=== PATIENT | male | born 1950 | race Caucasian/White ===

== ENCOUNTER → 2016-11-21 | Outpatient (RCR) | payer MEDICARE, BC ==
[2016-08-23 08:25] LABS: ADD PATHOLOGY DIFF REVIEW NO
[2016-08-23 08:28] LABS: MEAN CELL VOLUME 83 fl (80.0-100.0); MEAN CORPUSCULAR HGB CONC 34 g/dl (33.0-37.0); MEAN PLATELET VOLUME 10.7 fl (7.4-10.4); RED BLOOD COUNT 2.17 M/mm3 (4.20-5.60); REDCELL DISTRIBUTION WIDTH-CV 12.8 % (11.5-14.5); WHITE BLOOD COUNT 2.4 K/mm3 (4.8-10.8)
[2016-08-23 08:31] LABS: HEMOGLOBIN 6.2 g/dl (13.5-18.0); MEAN CORPUSCULAR HEMOGLOBIN 29 pg (27.0-31.0); PLATELET COUNT 57 K/mm3 (130-400)
[2016-08-23 08:34] VITALS: BP 143/63; PULSE 51; TEMP 98.1
[2016-08-23 08:39] LABS: ADJUSTED CALCIUM 10.3 mg/dL (8.4-10.2); ALBUMIN 3.5 gm/dL (3.5-5.0); BILIRUBIN,TOTAL 0.5 mg/dL (0.0-1.0); CALCIUM 9.9 mg/dL (8.4-10.2); CREATININE, serum 1.45 mg/dL (0.66-1.25); POTASSIUM 4.4 mmol/L (3.4-5.0); TOTAL PROTEIN 6.3 gm/dL (6.4-8.2)
[2016-08-23 09:22] LABS: BAND 2 % (0-10); EOSINOPHIL 1 % (0-4); NEUTROPHILS 81 % (42.0-75.2); PLATELET ESTIMATE DECREASED (NORMAL); TOTAL CELLS COUNTED 100
[2016-08-23 09:25] LABS: HYPOCHROMIA 2+; MICROCYTOSIS 2+
[2016-08-24 14:19] VITALS: BP 158/58; PULSE 54; TEMP 98
[2016-08-24 14:35] VITALS: BP 149/77; PULSE 51; TEMP 98.3
[2016-08-24 14:50] VITALS: BP 177/67; PULSE 55; TEMP 98.3
[2016-08-24 15:20] VITALS: BP 171/76; PULSE 48; TEMP 98.3
[2016-08-24 16:19] VITALS: BP 182/69; PULSE 48; TEMP 97.1
[2016-08-27 10:08] VITALS: BP 119/67; PULSE 72; TEMP 98.1
[2016-08-27 10:42] LABS: ADD PATHOLOGY DIFF REVIEW NO
[2016-08-27 10:46] LABS: MEAN CELL VOLUME 84 fl (80.0-100.0); MEAN CORPUSCULAR HGB CONC 34 g/dl (33.0-37.0); MEAN PLATELET VOLUME 10.7 fl (7.4-10.4); RED BLOOD COUNT 2.17 M/mm3 (4.20-5.60); REDCELL DISTRIBUTION WIDTH-CV 12.8 % (11.5-14.5)
[2016-08-27 10:53] LABS: HEMATOCRIT 18.3 % (42.0-52.0); HEMOGLOBIN 6.3 g/dl (13.5-18.0); MEAN CORPUSCULAR HEMOGLOBIN 29 pg (27.0-31.0); PLATELET COUNT 66 K/mm3 (130-400); WHITE BLOOD COUNT 1.5 K/mm3 (4.8-10.8)
[2016-08-27 11:01] LABS: ADJUSTED CALCIUM 10.3 mg/dL (8.4-10.2); ALBUMIN 3.5 gm/dL (3.5-5.0); BILIRUBIN,TOTAL 0.5 mg/dL (0.0-1.0); CALCIUM 9.9 mg/dL (8.4-10.2); CREATININE, serum 1.48 mg/dL (0.66-1.25); POTASSIUM 4.4 mmol/L (3.4-5.0); TOTAL PROTEIN 6.3 gm/dL (6.4-8.2)
[2016-08-27 11:07] LABS: BAND 9 % (0-10); METAMYELOCYTE 1 % (0-0); NEUTROPHILS 77 % (42.0-75.2); PLATELET ESTIMATE DECREASED (NORMAL); TOTAL CELLS COUNTED 100
[2016-08-30 08:21] VITALS: BP 148/75; PULSE 62; TEMP 97.7
[2016-08-30 08:37] LABS: ADD PATHOLOGY DIFF REVIEW NO
[2016-08-30 08:50] LABS: ADJUSTED CALCIUM 10.4 mg/dL (8.4-10.2); ALBUMIN 3.5 gm/dL (3.5-5.0); BILIRUBIN,TOTAL 0.5 mg/dL (0.0-1.0); CREATININE, serum 1.41 mg/dL (0.66-1.25); MEAN CELL VOLUME 85 fl (80.0-100.0); MEAN CORPUSCULAR HGB CONC 34 g/dl (33.0-37.0); MEAN PLATELET VOLUME 10.6 fl (7.4-10.4); POTASSIUM 4.2 mmol/L (3.4-5.0); RED BLOOD COUNT 2.51 M/mm3 (4.20-5.60); REDCELL DISTRIBUTION WIDTH-CV 13.2 % (11.5-14.5); TOTAL PROTEIN 6.4 gm/dL (6.4-8.2)
[2016-08-30 08:52] LABS: HEMOGLOBIN 7.3 g/dl (13.5-18.0); MEAN CORPUSCULAR HEMOGLOBIN 29 pg (27.0-31.0)
[2016-08-30 08:53] LABS: HEMATOCRIT 21.2 % (42.0-52.0); PLATELET COUNT 72 K/mm3 (130-400)
[2016-08-30 09:22] LABS: BAND 3 % (0-10); EOSINOPHIL 1 % (0-4); METAMYELOCYTE 2 % (0-0); MYELOCYTE 1 % (0-0); NEUTROPHILS 83 % (42.0-75.2); TOTAL CELLS COUNTED 100
[2016-08-30 09:24] LABS: ANISOCYTOSIS 1+; HYPOCHROMIA 2+; MICROCYTOSIS 1+; PLATELET ESTIMATE DECREASED (NORMAL); ROULEAUX 1+
[2016-09-06 08:10] VITALS: BP 132/72; PULSE 60; TEMP 97.9
[2016-09-06 08:27] LABS: ADD PATHOLOGY DIFF REVIEW NO
[2016-09-06 08:35] LABS: MEAN CELL VOLUME 86 fl (80.0-100.0); MEAN CORPUSCULAR HGB CONC 34 g/dl (33.0-37.0); MEAN PLATELET VOLUME 10.4 fl (7.4-10.4); RED BLOOD COUNT 2.47 M/mm3 (4.20-5.60); REDCELL DISTRIBUTION WIDTH-CV 13.2 % (11.5-14.5); WHITE BLOOD COUNT 3.6 K/mm3 (4.8-10.8)
[2016-09-06 08:39] LABS: HEMATOCRIT 21.2 % (42.0-52.0); HEMOGLOBIN 7.2 g/dl (13.5-18.0); MEAN CORPUSCULAR HEMOGLOBIN 29 pg (27.0-31.0); PLATELET COUNT 74 K/mm3 (130-400)
[2016-09-06 08:42] LABS: ADJUSTED CALCIUM 10.4 mg/dL (8.4-10.2); ALBUMIN 3.4 gm/dL (3.5-5.0); BILIRUBIN,TOTAL 0.6 mg/dL (0.0-1.0); CALCIUM 9.9 mg/dL (8.4-10.2); CREATININE, serum 1.42 mg/dL (0.66-1.25); POTASSIUM 4.1 mmol/L (3.4-5.0); TOTAL PROTEIN 6.4 gm/dL (6.4-8.2)
[2016-09-06 08:46] LABS: BAND 3 % (0-10); NEUTROPHILS 90 % (42.0-75.2); PLATELET ESTIMATE DECREASED (NORMAL); TOTAL CELLS COUNTED 100
[2016-09-07 15:20] VITALS: BP 132/74; PULSE 68; TEMP 98.3
[2016-09-07 15:45] VITALS: BP 142/76; PULSE 57; TEMP 98
[2016-09-07 16:00] VITALS: BP 144/81; PULSE 54; TEMP 98.1
[2016-09-07 16:30] VITALS: BP 161/80; PULSE 52; TEMP 98.2
[2016-09-07 17:10] VITALS: BP 155/82; PULSE 59; TEMP 97.9
[2016-09-13 07:17] VITALS: BP 139/84; PULSE 65; TEMP 97.4
[2016-09-13 07:33] LABS: ADD PATHOLOGY DIFF REVIEW NO
[2016-09-13 07:36] LABS: MEAN CELL VOLUME 82 fl (80.0-100.0); MEAN CORPUSCULAR HGB CONC 34 g/dl (33.0-37.0); MEAN PLATELET VOLUME 10.2 fl (7.4-10.4); RED BLOOD COUNT 2.67 M/mm3 (4.20-5.60); REDCELL DISTRIBUTION WIDTH-CV 15.5 % (11.5-14.5); WHITE BLOOD COUNT 3.1 K/mm3 (4.8-10.8)
[2016-09-13 07:56] LABS: HEMOGLOBIN 7.5 g/dl (13.5-18.0); MEAN CORPUSCULAR HEMOGLOBIN 28 pg (27.0-31.0); PLATELET COUNT 61 K/mm3 (130-400)
[2016-09-13 08:14] LABS: ADJUSTED CALCIUM 10.3 mg/dL (8.4-10.2); ALBUMIN 3.3 gm/dL (3.5-5.0); BILIRUBIN,TOTAL 0.5 mg/dL (0.0-1.0); CALCIUM 9.7 mg/dL (8.4-10.2); CREATININE, serum 1.29 mg/dL (0.66-1.25); POTASSIUM 4.2 mmol/L (3.4-5.0); TOTAL PROTEIN 6.2 gm/dL (6.4-8.2)
[2016-09-13 12:10] LABS: BAND 8 % (0-10); NEUTROPHILS 78 % (42.0-75.2); TOTAL CELLS COUNTED 100
[2016-09-13 12:11] LABS: PLATELET ESTIMATE DECREASED (NORMAL)
[2016-09-17 08:03] VITALS: BP 134/77; PULSE 66; TEMP 98.8
[2016-09-17 08:31] LABS: ADJUSTED CALCIUM 10.4 mg/dL (8.4-10.2); ALBUMIN 3.4 gm/dL (3.5-5.0); BILIRUBIN,TOTAL 0.6 mg/dL (0.0-1.0); CALCIUM 9.9 mg/dL (8.4-10.2); CREATININE, serum 1.53 mg/dL (0.66-1.25); POTASSIUM 4.5 mmol/L (3.4-5.0); TOTAL PROTEIN 6.1 gm/dL (6.4-8.2)
[2016-09-17 08:31] LABS: ADD PATHOLOGY DIFF REVIEW NO
[2016-09-17 08:42] LABS: MEAN CELL VOLUME 84 fl (80.0-100.0); MEAN CORPUSCULAR HGB CONC 33 g/dl (33.0-37.0); MEAN PLATELET VOLUME 10.3 fl (7.4-10.4); RED BLOOD COUNT 2.47 M/mm3 (4.20-5.60); REDCELL DISTRIBUTION WIDTH-CV 14.4 % (11.5-14.5)
[2016-09-17 08:44] LABS: HEMATOCRIT 20.8 % (42.0-52.0); HEMOGLOBIN 6.8 g/dl (13.5-18.0); MEAN CORPUSCULAR HEMOGLOBIN 28 pg (27.0-31.0); PLATELET COUNT 54 K/mm3 (130-400); WHITE BLOOD COUNT 1.8 K/mm3 (4.8-10.8)
[2016-09-17 09:33] LABS: EOSINOPHIL 1 % (0-4); MYELOCYTE 1 % (0-0); NEUTROPHILS 84 % (42.0-75.2); TOTAL CELLS COUNTED 100
[2016-09-17 09:34] LABS: PLATELET ESTIMATE DECREASED (NORMAL)
[2016-09-17 16:36] VITALS: BP 127/73; PULSE 68; TEMP 98.2
[2016-09-17 16:41] VITALS: BP 125/68; PULSE 62; TEMP 98.3
[2016-09-17 16:56] VITALS: BP 110/75; PULSE 60; TEMP 98.2
[2016-09-17 17:26] VITALS: BP 145/74; PULSE 60; TEMP 98.1
[2016-09-17 18:26] VITALS: BP 145/75; PULSE 60; TEMP 98.2
[2016-09-20 07:54] VITALS: BP 140/53; PULSE 64; TEMP 97.9
[2016-09-20 08:06] LABS: ADD PATHOLOGY DIFF REVIEW NO
[2016-09-20 08:17] LABS: MEAN CELL VOLUME 83 fl (80.0-100.0); MEAN CORPUSCULAR HGB CONC 33 g/dl (33.0-37.0); MEAN PLATELET VOLUME 10.3 fl (7.4-10.4); RED BLOOD COUNT 2.57 M/mm3 (4.20-5.60); REDCELL DISTRIBUTION WIDTH-CV 14.5 % (11.5-14.5)
[2016-09-20 08:24] LABS: ADJUSTED CALCIUM 10.4 mg/dL (8.4-10.2); ALBUMIN 3.2 gm/dL (3.5-5.0); BILIRUBIN,TOTAL 0.6 mg/dL (0.0-1.0); CALCIUM 9.8 mg/dL (8.4-10.2); CREATININE, serum 1.33 mg/dL (0.66-1.25); POTASSIUM 4.4 mmol/L (3.4-5.0); TOTAL PROTEIN 6.3 gm/dL (6.4-8.2)
[2016-09-20 08:33] LABS: HEMATOCRIT 21.3 % (42.0-52.0); MEAN CORPUSCULAR HEMOGLOBIN 27 pg (27.0-31.0); PLATELET COUNT 54 K/mm3 (130-400); WHITE BLOOD COUNT 1.3 K/mm3 (4.8-10.8)
[2016-09-20 08:45] LABS: BAND 9 % (0-10); METAMYELOCYTE 1 % (0-0); NEUTROPHILS 80 % (42.0-75.2); PLATELET ESTIMATE DECREASED (NORMAL); TOTAL CELLS COUNTED 100
[2016-09-21 13:13] VITALS: BP 146/75; PULSE 75; TEMP 98.1
[2016-09-21 13:28] VITALS: BP 133/72; PULSE 70; TEMP 98.2
[2016-09-21 13:43] VITALS: BP 138/76; PULSE 75; TEMP 98.6
[2016-09-21 14:35] VITALS: BP 145/78; PULSE 75; TEMP 98
[2016-09-24 08:18] VITALS: BP 153/76; PULSE 70; TEMP 97.3
[2016-09-24 08:30] LABS: ADD PATHOLOGY DIFF REVIEW NO
[2016-09-24 08:36] LABS: MEAN CELL VOLUME 83 fl (80.0-100.0); MEAN CORPUSCULAR HGB CONC 34 g/dl (33.0-37.0); MEAN PLATELET VOLUME 9.9 fl (7.4-10.4); REDCELL DISTRIBUTION WIDTH-CV 14.2 % (11.5-14.5)
[2016-09-24 08:39] LABS: HEMATOCRIT 21.5 % (42.0-52.0); MEAN CORPUSCULAR HEMOGLOBIN 28 pg (27.0-31.0)
[2016-09-24 08:41] LABS: HEMOGLOBIN 7.2 g/dl (13.5-18.0); PLATELET COUNT 46 K/mm3 (130-400); WHITE BLOOD COUNT 1.1 K/mm3 (4.8-10.8)
[2016-09-24 08:49] LABS: ALBUMIN 3.2 gm/dL (3.5-5.0); BILIRUBIN,TOTAL 0.6 mg/dL (0.0-1.0); CALCIUM 9.4 mg/dL (8.4-10.2); CREATININE, serum 1.45 mg/dL (0.66-1.25); POTASSIUM 4.5 mmol/L (3.4-5.0); TOTAL PROTEIN 6.2 gm/dL (6.4-8.2)
[2016-09-24 09:07] LABS: EOSINOPHIL 4 % (0-4); NEUTROPHILS 70 % (42.0-75.2)
[2016-09-24 09:08] LABS: PLATELET ESTIMATE DECREASED (NORMAL); TOTAL CELLS COUNTED 50
[2016-09-27 07:44] LABS: ADD PATHOLOGY DIFF REVIEW NO
[2016-09-27 07:48] VITALS: BP 136/69; PULSE 72; TEMP 97.8
[2016-09-27 07:59] LABS: MEAN CELL VOLUME 83 fl (80.0-100.0); MEAN CORPUSCULAR HGB CONC 33 g/dl (33.0-37.0); MEAN PLATELET VOLUME 10.5 fl (7.4-10.4); RED BLOOD COUNT 2.47 M/mm3 (4.20-5.60)
[2016-09-27 08:03] LABS: ADJUSTED CALCIUM 10.1 mg/dL (8.4-10.2); ALBUMIN 3.4 gm/dL (3.5-5.0); BILIRUBIN,TOTAL 0.8 mg/dL (0.0-1.0); CALCIUM 9.6 mg/dL (8.4-10.2); CREATININE, serum 1.37 mg/dL (0.66-1.25); POTASSIUM 4.6 mmol/L (3.4-5.0); TOTAL PROTEIN 6.5 gm/dL (6.4-8.2)
[2016-09-27 08:10] LABS: HEMATOCRIT 20.4 % (42.0-52.0); HEMOGLOBIN 6.8 g/dl (13.5-18.0); MEAN CORPUSCULAR HEMOGLOBIN 28 pg (27.0-31.0); WHITE BLOOD COUNT 1.3 K/mm3 (4.8-10.8)
[2016-09-27 08:11] LABS: PLATELET COUNT 46 K/mm3 (130-400)
[2016-09-27 08:26] LABS: METAMYELOCYTE 5 % (0-0); NEUTROPHILS 60 % (42.0-75.2); TOTAL CELLS COUNTED 100
[2016-09-27 08:28] LABS: HYPOCHROMIA 2+; MICROCYTOSIS 1+
[2016-09-27 13:25] VITALS: BP 129/67; PULSE 68; TEMP 97.5
[2016-09-27 13:45] VITALS: BP 113/68; PULSE 68; TEMP 97.1
[2016-09-27 14:01] VITALS: BP 127/67; PULSE 62; TEMP 97.2
[2016-09-27 14:29] VITALS: BP 135/71; PULSE 62; TEMP 97.2
[2016-09-27 15:10] VITALS: BP 132/74; PULSE 61; TEMP 97.9
[2016-10-03 13:53] VITALS: BP 130/61; PULSE 58; TEMP 97.6
[2016-10-03 14:08] VITALS: BP 142/72; PULSE 62; TEMP 97.6
[2016-10-03 14:25] VITALS: BP 172/78; PULSE 62; TEMP 97.6
[2016-10-03 14:50] VITALS: BP 166/78; PULSE 55; TEMP 97
[2016-10-03 15:35] VITALS: BP 165/80; PULSE 54; TEMP 97.8
[2016-10-03 17:03] VITALS: BP 101/78; PULSE 102; TEMP 98.7
[2016-10-05 08:33] LABS: ADD PATHOLOGY DIFF REVIEW NO
[2016-10-05 08:37] LABS: MEAN CELL VOLUME 82 fl (80.0-100.0); MEAN CORPUSCULAR HGB CONC 34 g/dl (33.0-37.0); REDCELL DISTRIBUTION WIDTH-CV 14.2 % (11.5-14.5); WHITE BLOOD COUNT 2.2 K/mm3 (4.8-10.8)
[2016-10-05 08:39] VITALS: BP 143/65; PULSE 64; TEMP 98.2
[2016-10-05 08:42] LABS: HEMATOCRIT 20.5 % (42.0-52.0); HEMOGLOBIN 6.9 g/dl (13.5-18.0); MEAN CORPUSCULAR HEMOGLOBIN 28 pg (27.0-31.0); PLATELET COUNT 51 K/mm3 (130-400)
[2016-10-05 08:45] LABS: ADJUSTED CALCIUM 10.5 mg/dL (8.4-10.2); ALBUMIN 3.3 gm/dL (3.5-5.0); BILIRUBIN,TOTAL 0.6 mg/dL (0.0-1.0); CALCIUM 9.9 mg/dL (8.4-10.2); CREATININE, serum 1.43 mg/dL (0.66-1.25); POTASSIUM 4.6 mmol/L (3.4-5.0)
[2016-10-05 08:47] LABS: NEUTROPHILS 28 % (42.0-75.2); TOTAL CELLS COUNTED 100
[2016-10-05 08:48] LABS: HYPOCHROMIA 2+; MICROCYTOSIS 1+
[2016-10-05 13:24] VITALS: BP 154/78; PULSE 62; TEMP 98.5
[2016-10-05 13:38] VITALS: BP 139/78; PULSE 64; TEMP 98.1
[2016-10-05 13:54] VITALS: BP 141/75; PULSE 60; TEMP 98.4
[2016-10-05 14:24] VITALS: BP 154/78; PULSE 60; TEMP 97.8
[2016-10-05 15:20] VITALS: BP 184/80; PULSE 65; TEMP 98
[2016-10-08 08:20] VITALS: BP 151/73; PULSE 65; TEMP 98.2
[2016-10-08 08:42] LABS: ADD PATHOLOGY DIFF REVIEW NO
[2016-10-08 08:47] LABS: MEAN CELL VOLUME 83 fl (80.0-100.0); MEAN CORPUSCULAR HGB CONC 33 g/dl (33.0-37.0); MEAN PLATELET VOLUME 10.5 fl (7.4-10.4); RED BLOOD COUNT 2.57 M/mm3 (4.20-5.60); REDCELL DISTRIBUTION WIDTH-CV 13.9 % (11.5-14.5)
[2016-10-08 08:50] LABS: HEMATOCRIT 21.2 % (42.0-52.0); MEAN CORPUSCULAR HEMOGLOBIN 27 pg (27.0-31.0); PLATELET COUNT 43 K/mm3 (130-400); WHITE BLOOD COUNT 1.1 K/mm3 (4.8-10.8)
[2016-10-08 09:03] LABS: ADJUSTED CALCIUM 10.5 mg/dL (8.4-10.2); BILIRUBIN,TOTAL 0.6 mg/dL (0.0-1.0); CALCIUM 9.7 mg/dL (8.4-10.2); CREATININE, serum 1.23 mg/dL (0.66-1.25); POTASSIUM 4.5 mmol/L (3.4-5.0); TOTAL PROTEIN 5.6 gm/dL (6.4-8.2)
[2016-10-08 09:25] LABS: BAND 4 % (0-10); EOSINOPHIL 4 % (0-4); HYPOCHROMIA 2+; NEUTROPHILS 52 % (42.0-75.2); PLATELET ESTIMATE DECREASED (NORMAL); TOTAL CELLS COUNTED 100
[2016-10-08 09:26] LABS: MICROCYTOSIS 1+
[2016-10-08 10:33] VITALS: BP 143/70; PULSE 59; TEMP 98.1
[2016-10-08 10:47] VITALS: BP 154/64; PULSE 59; TEMP 98.1
[2016-10-08 11:02] VITALS: BP 152/68; PULSE 50; TEMP 97.8
[2016-10-08 11:30] VITALS: BP 152/68; PULSE 49; TEMP 97.1
[2016-10-08 12:09] VITALS: BP 149/74; PULSE 49; TEMP 97.5
[2016-10-11 08:11] LABS: ADD PATHOLOGY DIFF REVIEW NO
[2016-10-11 08:20] VITALS: BP 137/68; PULSE 59; TEMP 98.3
[2016-10-11 08:33] LABS: MEAN CELL VOLUME 83 fl (80.0-100.0); MEAN CORPUSCULAR HGB CONC 34 g/dl (33.0-37.0); MEAN PLATELET VOLUME 10.8 fl (7.4-10.4); RED BLOOD COUNT 2.72 M/mm3 (4.20-5.60); REDCELL DISTRIBUTION WIDTH-CV 13.9 % (11.5-14.5)
[2016-10-11 08:37] LABS: ADJUSTED CALCIUM 10.3 mg/dL (8.4-10.2); ALBUMIN 3.2 gm/dL (3.5-5.0); BILIRUBIN,TOTAL 0.8 mg/dL (0.0-1.0); CALCIUM 9.7 mg/dL (8.4-10.2); CREATININE, serum 1.46 mg/dL (0.66-1.25); POTASSIUM 4.4 mmol/L (3.4-5.0)
[2016-10-11 08:56] LABS: HEMATOCRIT 22.6 % (42.0-52.0); HEMOGLOBIN 7.6 g/dl (13.5-18.0); MEAN CORPUSCULAR HEMOGLOBIN 28 pg (27.0-31.0); PLATELET COUNT 49 K/mm3 (130-400); WHITE BLOOD COUNT 1.5 K/mm3 (4.8-10.8)
[2016-10-11 10:53] LABS: BAND 10 % (0-10); EOSINOPHIL 2 % (0-4); METAMYELOCYTE 4 % (0-0); NEUTROPHILS 48 % (42.0-75.2); PLATELET ESTIMATE DECREASED (NORMAL)
[2016-10-11 11:01] LABS: TOTAL CELLS COUNTED 50
[2016-10-15 08:14] VITALS: BP 152/59; PULSE 60; TEMP 97.7
[2016-10-15 08:29] LABS: ADD PATHOLOGY DIFF REVIEW NO
[2016-10-15 08:41] LABS: MEAN CELL VOLUME 84 fl (80.0-100.0); MEAN CORPUSCULAR HGB CONC 33 g/dl (33.0-37.0); MEAN PLATELET VOLUME 11.3 fl (7.4-10.4); RED BLOOD COUNT 2.38 M/mm3 (4.20-5.60)
[2016-10-15 08:49] LABS: HEMATOCRIT 19.9 % (42.0-52.0); HEMOGLOBIN 6.5 g/dl (13.5-18.0); MEAN CORPUSCULAR HEMOGLOBIN 27 pg (27.0-31.0); PLATELET COUNT 51 K/mm3 (130-400); WHITE BLOOD COUNT 1.4 K/mm3 (4.8-10.8)
[2016-10-15 08:56] LABS: ADJUSTED CALCIUM 10.2 mg/dL (8.4-10.2); ALBUMIN 3.2 gm/dL (3.5-5.0); BILIRUBIN,TOTAL 0.6 mg/dL (0.0-1.0); CALCIUM 9.6 mg/dL (8.4-10.2); CREATININE, serum 1.3 mg/dL (0.66-1.25); POTASSIUM 4.4 mmol/L (3.4-5.0); TOTAL PROTEIN 5.6 gm/dL (6.4-8.2)
[2016-10-15 10:42] LABS: BAND 6 % (0-10); EOSINOPHIL 2 % (0-4); METAMYELOCYTE 2 % (0-0); MYELOCYTE 2 % (0-0); NEUTROPHILS 64 % (42.0-75.2); PLATELET ESTIMATE DECREASED (NORMAL); TOTAL CELLS COUNTED 50
[2016-10-15 11:10] VITALS: BP 140/54; PULSE 59; TEMP 98.1
[2016-10-15 11:33] VITALS: BP 134/63; PULSE 58; TEMP 98.1
[2016-10-15 11:48] VITALS: BP 144/69; PULSE 55; TEMP 98
[2016-10-15 12:18] VITALS: BP 148/73; PULSE 53; TEMP 98.1
[2016-10-15 13:11] VITALS: BP 149/74; PULSE 56; TEMP 98.2
[2016-10-18 08:22] VITALS: BP 129/57; PULSE 68; TEMP 98
[2016-10-18 08:47] LABS: ADD PATHOLOGY DIFF REVIEW NO
[2016-10-18 08:54] LABS: MEAN CELL VOLUME 83 fl (80.0-100.0); MEAN CORPUSCULAR HGB CONC 34 g/dl (33.0-37.0); RED BLOOD COUNT 2.51 M/mm3 (4.20-5.60); REDCELL DISTRIBUTION WIDTH-CV 13.8 % (11.5-14.5)
[2016-10-18 09:02] LABS: ADJUSTED CALCIUM 10.4 mg/dL (8.4-10.2); ALBUMIN 3.2 gm/dL (3.5-5.0); BILIRUBIN,TOTAL 0.8 mg/dL (0.0-1.0); CALCIUM 9.8 mg/dL (8.4-10.2); CREATININE, serum 1.38 mg/dL (0.66-1.25); POTASSIUM 4.4 mmol/L (3.4-5.0); TOTAL PROTEIN 5.9 gm/dL (6.4-8.2)
[2016-10-18 09:05] LABS: HEMATOCRIT 20.7 % (42.0-52.0); MEAN CORPUSCULAR HEMOGLOBIN 28 pg (27.0-31.0); PLATELET COUNT 45 K/mm3 (130-400)
[2016-10-18 09:43] LABS: BAND 12 % (0-10); NEUTROPHILS 57 % (42.0-75.2); PLATELET ESTIMATE DECREASED (NORMAL)
[2016-10-18 09:44] LABS: TOTAL CELLS COUNTED 50
[2016-10-18 12:15] VITALS: BP 145/56; PULSE 66; TEMP 98.2
[2016-10-18 12:35] VITALS: BP 128/73; PULSE 57; TEMP 98.3
[2016-10-18 12:50] VITALS: BP 134/62; PULSE 56; TEMP 98.2
[2016-10-18 13:20] VITALS: BP 126/70; PULSE 55; TEMP 98.2
[2016-10-18 14:20] VITALS: BP 149/65; PULSE 58; TEMP 98.2
[2016-10-22 08:22] VITALS: BP 122/61; PULSE 59; TEMP 98
[2016-10-22 08:27] LABS: ADD PATHOLOGY DIFF REVIEW NO
[2016-10-22 08:36] LABS: MEAN CELL VOLUME 85 fl (80.0-100.0); MEAN CORPUSCULAR HGB CONC 33 g/dl (33.0-37.0); MEAN PLATELET VOLUME 11.5 fl (7.4-10.4); RED BLOOD COUNT 2.54 M/mm3 (4.20-5.60); REDCELL DISTRIBUTION WIDTH-CV 14.2 % (11.5-14.5)
[2016-10-22 08:38] LABS: HEMATOCRIT 21.6 % (42.0-52.0); HEMOGLOBIN 7.2 g/dl (13.5-18.0); MEAN CORPUSCULAR HEMOGLOBIN 28 pg (27.0-31.0); PLATELET COUNT 43 K/mm3 (130-400)
[2016-10-22 08:46] LABS: ADJUSTED CALCIUM 10.3 mg/dL (8.4-10.2); ALBUMIN 3.2 gm/dL (3.5-5.0); BILIRUBIN,TOTAL 0.7 mg/dL (0.0-1.0); CALCIUM 9.7 mg/dL (8.4-10.2); CREATININE, serum 1.29 mg/dL (0.66-1.25); POTASSIUM 4.1 mmol/L (3.4-5.0); TOTAL PROTEIN 5.8 gm/dL (6.4-8.2)
[2016-10-22 09:29] LABS: BAND 2 % (0-10); EOSINOPHIL 4 % (0-4); NEUTROPHILS 56 % (42.0-75.2)
[2016-10-22 09:30] LABS: PLATELET ESTIMATE DECREASED (NORMAL)
[2016-10-22 09:33] LABS: TOTAL CELLS COUNTED 50
[2016-10-25 08:25] LABS: ADD PATHOLOGY DIFF REVIEW NO
[2016-10-25 08:32] LABS: MEAN CELL VOLUME 84 fl (80.0-100.0); MEAN CORPUSCULAR HGB CONC 33 g/dl (33.0-37.0); MEAN PLATELET VOLUME 10.8 fl (7.4-10.4); RED BLOOD COUNT 2.29 M/mm3 (4.20-5.60); REDCELL DISTRIBUTION WIDTH-CV 13.9 % (11.5-14.5)
[2016-10-25 08:33] LABS: HEMATOCRIT 19.2 % (42.0-52.0); MEAN CORPUSCULAR HEMOGLOBIN 28 pg (27.0-31.0)
[2016-10-25 08:34] LABS: HEMOGLOBIN 6.4 g/dl (13.5-18.0); PLATELET COUNT 36 K/mm3 (130-400); WHITE BLOOD COUNT 0.8 K/mm3 (4.8-10.8)
[2016-10-25 08:53] LABS: ADJUSTED CALCIUM 10.5 mg/dL (8.4-10.2); BILIRUBIN,TOTAL 0.8 mg/dL (0.0-1.0); CALCIUM 9.7 mg/dL (8.4-10.2); CREATININE, serum 1.36 mg/dL (0.66-1.25); POTASSIUM 4.5 mmol/L (3.4-5.0); TOTAL PROTEIN 5.8 gm/dL (6.4-8.2)
[2016-10-25 08:54] VITALS: BP 125/62; PULSE 66; TEMP 98
[2016-10-25 09:51] VITALS: BP 120/60; PULSE 58; TEMP 98.3
[2016-10-25 10:10] VITALS: BP 119/58; PULSE 54; TEMP 98.4
[2016-10-25 10:15] LABS: BAND 6 % (0-10); NEUTROPHILS 52 % (42.0-75.2)
[2016-10-25 10:16] LABS: PLATELET ESTIMATE DECREASED (NORMAL); TOTAL CELLS COUNTED 50
[2016-10-25 10:25] VITALS: BP 130/57; PULSE 57; TEMP 98
[2016-10-25 10:55] VITALS: BP 136/61; PULSE 56; TEMP 98.2
[2016-10-25 11:50] VITALS: BP 148/58; PULSE 50; TEMP 98
[2016-10-29 08:15] LABS: ADD PATHOLOGY DIFF REVIEW NO
[2016-10-29 08:23] VITALS: BP 126/67; PULSE 73; TEMP 98.4
[2016-10-29 08:33] LABS: MEAN CELL VOLUME 84 fl (80.0-100.0); MEAN CORPUSCULAR HGB CONC 34 g/dl (33.0-37.0); MEAN PLATELET VOLUME 10.9 fl (7.4-10.4); RED BLOOD COUNT 2.61 M/mm3 (4.20-5.60)
[2016-10-29 08:34] LABS: HEMATOCRIT 21.9 % (42.0-52.0); HEMOGLOBIN 7.4 g/dl (13.5-18.0); MEAN CORPUSCULAR HEMOGLOBIN 28 pg (27.0-31.0); PLATELET COUNT 35 K/mm3 (130-400); WHITE BLOOD COUNT 1.1 K/mm3 (4.8-10.8)
[2016-10-29 08:35] LABS: ADJUSTED CALCIUM 10.7 mg/dL (8.4-10.2); ALBUMIN 3.4 gm/dL (3.5-5.0); BILIRUBIN,TOTAL 0.7 mg/dL (0.0-1.0); CALCIUM 10.2 mg/dL (8.4-10.2); CREATININE, serum 1.4 mg/dL (0.66-1.25); POTASSIUM 4.4 mmol/L (3.4-5.0); TOTAL PROTEIN 6.1 gm/dL (6.4-8.2)
[2016-10-29 08:48] LABS: BAND 10 % (0-10); BASOPHIL 2 % (0-2); EOSINOPHIL 2 % (0-4); NEUTROPHILS 54 % (42.0-75.2); PLATELET ESTIMATE DECREASED (NORMAL); TOTAL CELLS COUNTED 50
[2016-11-02 08:04] VITALS: BP 123/68; PULSE 66; TEMP 98.4
[2016-11-02 08:04] LABS: ADD PATHOLOGY DIFF REVIEW NO
[2016-11-02 08:08] LABS: MEAN CELL VOLUME 83 fl (80.0-100.0); MEAN CORPUSCULAR HGB CONC 34 g/dl (33.0-37.0); MEAN PLATELET VOLUME 10.7 fl (7.4-10.4); RED BLOOD COUNT 2.58 M/mm3 (4.20-5.60)
[2016-11-02 08:20] LABS: ADJUSTED CALCIUM 10.6 mg/dL (8.4-10.2); ALBUMIN 3.4 gm/dL (3.5-5.0); BILIRUBIN,TOTAL 0.8 mg/dL (0.0-1.0); CALCIUM 10.1 mg/dL (8.4-10.2); CREATININE, serum 1.42 mg/dL (0.66-1.25); POTASSIUM 4.4 mmol/L (3.4-5.0); TOTAL PROTEIN 6.1 gm/dL (6.4-8.2)
[2016-11-02 09:00] LABS: BAND 10 % (0-10); EOSINOPHIL 4 % (0-4); NEUTROPHILS 62 % (42.0-75.2); PLATELET ESTIMATE DECREASED (NORMAL); TOTAL CELLS COUNTED 50
[2016-11-02 09:01] LABS: HEMATOCRIT 21.4 % (42.0-52.0); HEMOGLOBIN 7.2 g/dl (13.5-18.0); MEAN CORPUSCULAR HEMOGLOBIN 28 pg (27.0-31.0); PLATELET COUNT 20 K/mm3 (130-400)
[2016-11-06 08:14] LABS: ADD PATHOLOGY DIFF REVIEW NO
[2016-11-06 08:18] LABS: MEAN CELL VOLUME 83 fl (80.0-100.0); MEAN CORPUSCULAR HGB CONC 34 g/dl (33.0-37.0); MEAN PLATELET VOLUME 10.4 fl (7.4-10.4); RED BLOOD COUNT 2.29 M/mm3 (4.20-5.60); REDCELL DISTRIBUTION WIDTH-CV 13.6 % (11.5-14.5)
[2016-11-06 08:20] VITALS: BP 109/58; PULSE 73; TEMP 98.1
[2016-11-06 08:26] LABS: HEMATOCRIT 18.9 % (42.0-52.0); HEMOGLOBIN 6.5 g/dl (13.5-18.0); MEAN CORPUSCULAR HEMOGLOBIN 28 pg (27.0-31.0); PLATELET COUNT 20 K/mm3 (130-400); WHITE BLOOD COUNT 0.8 K/mm3 (4.8-10.8)
[2016-11-06 08:35] LABS: ADJUSTED CALCIUM 10.7 mg/dL (8.4-10.2); ALBUMIN 3.3 gm/dL (3.5-5.0); BILIRUBIN,TOTAL 0.8 mg/dL (0.0-1.0); CALCIUM 10.1 mg/dL (8.4-10.2); CREATININE, serum 1.51 mg/dL (0.66-1.25); POTASSIUM 4.4 mmol/L (3.4-5.0)
[2016-11-06 09:36] LABS: BAND 20 % (0-10); MYELOCYTE 4 % (0-0); NEUTROPHILS 44 % (42.0-75.2); TOTAL CELLS COUNTED 100
[2016-11-06 09:37] LABS: PLATELET ESTIMATE DECREASED (NORMAL)
[2016-11-06 09:57] VITALS: BP 103/53; PULSE 67; TEMP 98.2
[2016-11-06 10:17] VITALS: BP 119/48; PULSE 56; TEMP 98.4
[2016-11-06 10:32] VITALS: BP 131/53; PULSE 53; TEMP 98.1
[2016-11-06 11:03] VITALS: BP 131/55; PULSE 49; TEMP 98.2
[2016-11-06 11:45] VITALS: BP 133/59; PULSE 57; TEMP 97.7
[2016-11-09 08:23] LABS: ADD PATHOLOGY DIFF REVIEW NO
[2016-11-09 08:26] VITALS: BP 110/62; PULSE 63; TEMP 98.1
[2016-11-09 08:35] LABS: MEAN CELL VOLUME 83 fl (80.0-100.0); MEAN CORPUSCULAR HGB CONC 34 g/dl (33.0-37.0); MEAN PLATELET VOLUME 11.4 fl (7.4-10.4); RED BLOOD COUNT 2.33 M/mm3 (4.20-5.60); REDCELL DISTRIBUTION WIDTH-CV 14.2 % (11.5-14.5)
[2016-11-09 08:37] LABS: HEMATOCRIT 19.4 % (42.0-52.0); HEMOGLOBIN 6.6 g/dl (13.5-18.0); MEAN CORPUSCULAR HEMOGLOBIN 28 pg (27.0-31.0); PLATELET COUNT 14 K/mm3 (130-400); WHITE BLOOD COUNT 0.9 K/mm3 (4.8-10.8)
[2016-11-09 08:39] LABS: ADJUSTED CALCIUM 10.6 mg/dL (8.4-10.2); ALBUMIN 3.3 gm/dL (3.5-5.0); BILIRUBIN,TOTAL 0.8 mg/dL (0.0-1.0); CREATININE, serum 1.41 mg/dL (0.66-1.25); POTASSIUM 4.5 mmol/L (3.4-5.0); TOTAL PROTEIN 5.9 gm/dL (6.4-8.2)
[2016-11-09 08:47] LABS: BAND 4 % (0-10); EOSINOPHIL 2 % (0-4); NEUTROPHILS 54 % (42.0-75.2); PLATELET ESTIMATE DECREASED (NORMAL)
[2016-11-09 08:48] LABS: TOTAL CELLS COUNTED 50
[2016-11-09 10:50] VITALS: BP 121/56; PULSE 64; TEMP 97.9
[2016-11-09 11:05] VITALS: BP 111/57; PULSE 60; TEMP 98
[2016-11-09 11:20] VITALS: BP 145/65; PULSE 65; TEMP 97.9
[2016-11-09 11:50] VITALS: BP 121/55; PULSE 55; TEMP 97.8
[2016-11-09 12:35] VITALS: BP 122/56; PULSE 60; TEMP 97.8
[2016-11-13 08:18] LABS: ADD PATHOLOGY DIFF REVIEW NO
[2016-11-13 08:21] VITALS: BP 143/67; PULSE 76; TEMP 96
[2016-11-13 08:26] LABS: MEAN CELL VOLUME 84 fl (80.0-100.0); MEAN CORPUSCULAR HGB CONC 34 g/dl (33.0-37.0); MEAN PLATELET VOLUME 10.3 fl (7.4-10.4); RED BLOOD COUNT 2.52 M/mm3 (4.20-5.60); REDCELL DISTRIBUTION WIDTH-CV 13.6 % (11.5-14.5)
[2016-11-13 08:33] LABS: ADJUSTED CALCIUM 10.6 mg/dL (8.4-10.2); ALBUMIN 3.6 gm/dL (3.5-5.0); CALCIUM 10.3 mg/dL (8.4-10.2); CREATININE, serum 1.65 mg/dL (0.66-1.25); POTASSIUM 4.3 mmol/L (3.4-5.0); TOTAL PROTEIN 6.3 gm/dL (6.4-8.2)
[2016-11-13 08:50] LABS: HEMATOCRIT 21.1 % (42.0-52.0); HEMOGLOBIN 7.2 g/dl (13.5-18.0); MEAN CORPUSCULAR HEMOGLOBIN 29 pg (27.0-31.0); PLATELET COUNT 12 K/mm3 (130-400); WHITE BLOOD COUNT 0.8 K/mm3 (4.8-10.8)
[2016-11-13 09:00] LABS: BAND 8 % (0-10); EOSINOPHIL 8 % (0-4); NEUTROPHILS 24 % (42.0-75.2); PLATELET ESTIMATE DECREASED (NORMAL)
[2016-11-13 09:02] LABS: TOTAL CELLS COUNTED 25
[2016-11-14] VITALS (9 sets, daily range): BP systolic 112–142; BP diastolic 63–77; PULSE 61–90; TEMP 97.9–98.7
[2016-11-16 08:29] LABS: ADD PATHOLOGY DIFF REVIEW NO
[2016-11-16 08:34] LABS: MEAN CELL VOLUME 85 fl (80.0-100.0); MEAN CORPUSCULAR HGB CONC 34 g/dl (33.0-37.0); RED BLOOD COUNT 3.33 M/mm3 (4.20-5.60); REDCELL DISTRIBUTION WIDTH-CV 13.9 % (11.5-14.5)
[2016-11-16 08:38] LABS: HEMATOCRIT 28.3 % (42.0-52.0); HEMOGLOBIN 9.5 g/dl (13.5-18.0); MEAN CORPUSCULAR HEMOGLOBIN 29 pg (27.0-31.0); PLATELET COUNT 15 K/mm3 (130-400); WHITE BLOOD COUNT 0.5 K/mm3 (4.8-10.8)
[2016-11-16 08:48] VITALS: BP 122/62; PULSE 78; TEMP 98
[2016-11-16 08:48] LABS: ADJUSTED CALCIUM 10.8 mg/dL (8.4-10.2); ALBUMIN 3.3 gm/dL (3.5-5.0); BILIRUBIN,TOTAL 0.7 mg/dL (0.0-1.0); CALCIUM 10.2 mg/dL (8.4-10.2); CREATININE, serum 1.58 mg/dL (0.66-1.25); POTASSIUM 4.2 mmol/L (3.4-5.0)
[2016-11-16 09:16] LABS: BAND 16 % (0-10); EOSINOPHIL 4 % (0-4); NEUTROPHILS 36 % (42.0-75.2)
[2016-11-16 09:17] LABS: PLATELET ESTIMATE DECREASED (NORMAL); TOTAL CELLS COUNTED 25
[2016-11-19 08:23] VITALS: BP 110/53; PULSE 76; TEMP 98.1
[2016-11-19 08:30] LABS: ADD PATHOLOGY DIFF REVIEW NO
[2016-11-19 08:39] LABS: MEAN CELL VOLUME 85 fl (80.0-100.0); MEAN CORPUSCULAR HGB CONC 34 g/dl (33.0-37.0); MEAN PLATELET VOLUME 11.2 fl (7.4-10.4); RED BLOOD COUNT 2.18 M/mm3 (4.20-5.60); REDCELL DISTRIBUTION WIDTH-CV 13.4 % (11.5-14.5)
[2016-11-19 08:44] LABS: ADJUSTED CALCIUM 10.8 mg/dL (8.4-10.2); ALBUMIN 3.1 gm/dL (3.5-5.0); BILIRUBIN,TOTAL 0.8 mg/dL (0.0-1.0); CALCIUM 10.1 mg/dL (8.4-10.2); CREATININE, serum 1.55 mg/dL (0.66-1.25); POTASSIUM 3.9 mmol/L (3.4-5.0); TOTAL PROTEIN 5.8 gm/dL (6.4-8.2)
[2016-11-19 09:04] LABS: HEMATOCRIT 18.5 % (42.0-52.0); HEMOGLOBIN 6.2 g/dl (13.5-18.0); MEAN CORPUSCULAR HEMOGLOBIN 28 pg (27.0-31.0); PLATELET COUNT 8 K/mm3 (130-400); WHITE BLOOD COUNT 0.6 K/mm3 (4.8-10.8)
[2016-11-19 09:48] LABS: BAND 15 % (0-10); EOSINOPHIL 5 % (0-4); NEUTROPHILS 35 % (42.0-75.2); PLATELET ESTIMATE DECREASED (NORMAL); TOTAL CELLS COUNTED 20
[2016-11-19 10:25] VITALS: BP 132/71; PULSE 57; TEMP 97.9
[2016-11-19 10:40] VITALS: BP 129/69; PULSE 60; TEMP 98.3
[2016-11-19 10:55] VITALS: BP 122/69; PULSE 55; TEMP 98.3
[2016-11-19 11:25] VITALS: BP 140/75; PULSE 60; TEMP 98.1
[2016-11-19 12:10] VITALS: BP 146/76; PULSE 60; TEMP 98.2
[2016-11-20 14:00] VITALS: BP 135/82; PULSE 60; TEMP 98.2
[2016-11-20 14:20] VITALS: BP 139/74; PULSE 57; TEMP 98.2
[2016-11-20 14:35] VITALS: BP 150/80; PULSE 52; TEMP 98.4
[2016-11-20 15:01] VITALS: BP 156/78; PULSE 56; TEMP 98.2
[~2016-11-21] VITALS: Ht 182.9 cm; Wt 96.8 kg
[~2016-11-21] MED LIST: ASPIRIN 81M81 MG/TA2 PO; BACTRIM DS 8001 TAB PO; CARAFATE 1GM1 G PO; CELEBREX 200MG200 MG PO; COLACE 100100 MG/CAP PO; COMPAZINE 110 MG/TAB PO; COZAAR 50MG50 MG/TAB PO; COZAAR100 MG PO; DECADRON 4MG TAB4 MG PO; DIFLUCAN200 MG PO; ENTOCORT EC3 MG PO; FEROSUL325 MG PO; FIBER SUPPLEMENT PO; FOLIC ACID 11 MG/TA1 PO; FOLIC ACID 40400 MCG PO; JADENU90 MG PO; LASIX 40MG TABL40 MG PO; LEVAQUIN 5500 MG/TA1 PO; LOPRESSOR 225 MG/TAB PO; MAG-OX 400400 MG/TAB PO; METAMUCIL3.4 GM/DOS PO; MIRALAX119G PO; MULTI VITAMINS1 TAB PO; NEUPOGEN480 MCG/0. IJ; OXY IR5 MG PO; PRILOSEC 20MG20 MG PO; PROGRAF 0.5MG0.5 MG PO; VFEND 200MG200 MG PO; VIDAZA100 MG SQ; VITAMIN D31000 I1 PO; ZANTAC 150MG T150 MG PO; ZOFRAN8 MG PO; ZOVIRAX400 MG PO; ZOVIRAX800 MG PO
[2016-11-21 10:54] VITALS: BP 123/76; PULSE 73; TEMP 98.2
[2016-11-21 11:15] VITALS: BP 124/74; PULSE 63; TEMP 98.2
[2016-11-21 11:40] VITALS: BP 140/77; PULSE 70; TEMP 98.3
== END | disposition still patient (30) ==
LOC: EUO
PROVIDERS: Internal Medicine; Internal Medicine Medical Oncology
DX: D46.21 Refractory anemia with excess of blasts 1 (principal); Z94.81 Bone marrow transplant status; Z45.2 Encounter for adjustment and management of vascular access device
CPT/HCPCS: J1644; J7050; P9037; P9040

== ENCOUNTER 2016-12-05 19:58 | Inpatient (IN) | payer MEDICARE, BC ==
[~2016-12-05] VITALS: Ht 182.9 cm; Wt 96.2 kg
[~2016-12-05 19:58] MED LIST changes: -DECADRON 4MG TAB4 MG PO; -JADENU90 MG PO; -PRILOSEC 20MG20 MG PO
[2016-12-05] MEDS ORDERED: BACTRIM DS 8001 TAB PO (20:13)
[2016-12-05 20:45] LABS: GRAN # 0.2 (1.4-6.5); GRAN % 39.1 % (42.2-75.2); LYMPH # 0.2 (1.2-3.4); LYMPH % 45.7 % (20.0-51.0); MEAN CELL VOLUME 80 fl (80.0-100.0); MEAN CORPUSCULAR HGB CONC 35 g/dl (33.0-37.0); MEAN PLATELET VOLUME 8.3 fl (7.4-10.4); RED BLOOD COUNT 2.05 M/mm3 (4.20-5.60)
[2016-12-05 20:49] LABS: HEMATOCRIT 16.4 % (42.0-52.0); MEAN CORPUSCULAR HEMOGLOBIN 28 pg (27.0-31.0)
[2016-12-05 20:51] LABS: HEMOGLOBIN 5.7 g/dl (13.5-18.0); PLATELET COUNT 10 K/mm3 (130-400); WHITE BLOOD COUNT 0.5 K/mm3 (4.8-10.8)
[2016-12-05 21:00] LABS: CALCIUM 9.9 mg/dL (8.4-10.2); CREATININE, serum 1.55 mg/dL (0.66-1.25); POTASSIUM 4.3 mmol/L (3.4-5.0)
[2016-12-05 21:21] LABS: PH 6 (5-8); SQUAMOUS EPITHELIAL 0-2 /hpf; URINE APPEARANCE Hazy; URINE BACTERIA None Seen /hpf; URINE BILIRUBIN Negative (NEGATIVE); URINE BLOOD 1+ (NEGATIVE); URINE COLOR Yellow; URINE GLUCOSE Negative (NEGATIVE); URINE KETONE Negative (NEGATIVE); URINE RBC 0-2 /hpf; URINE UROBILINOGEN Negative (NEGATIVE)
[2016-12-05 23:57] VITALS: BP 162/61; PULSE 67; TEMP 98.5
[2016-12-06] VITALS (17 sets, daily range): BP systolic 105–146; BP diastolic 50–67; PULSE 62–81; TEMP 98–100.5
[2016-12-06 06:42] LABS: MEAN CELL VOLUME 84 fl (80.0-100.0); MEAN CORPUSCULAR HGB CONC 33 g/dl (33.0-37.0); MEAN PLATELET VOLUME 8.2 fl (7.4-10.4); RED BLOOD COUNT 1.98 M/mm3 (4.20-5.60); REDCELL DISTRIBUTION WIDTH-CV 13.2 % (11.5-14.5)
[2016-12-06 06:54] LABS: ADJUSTED CALCIUM 10.3 mg/dL (8.4-10.2); ALBUMIN 2.8 gm/dL (3.5-5.0); BILIRUBIN,TOTAL 1.1 mg/dL (0.0-1.0); CALCIUM 9.3 mg/dL (8.4-10.2); CREATININE, serum 1.47 mg/dL (0.66-1.25); POTASSIUM 4.4 mmol/L (3.4-5.0); TOTAL PROTEIN 5.2 gm/dL (6.4-8.2)
[2016-12-06 07:09] LABS: HEMATOCRIT 16.6 % (42.0-52.0); HEMOGLOBIN 5.5 g/dl (13.5-18.0); MEAN CORPUSCULAR HEMOGLOBIN 28 pg (27.0-31.0); PLATELET COUNT 6 K/mm3 (130-400); WHITE BLOOD COUNT 0.6 K/mm3 (4.8-10.8)
[2016-12-06 07:10] LABS: ADD PATHOLOGY DIFF REVIEW NO
[2016-12-06 09:00] LABS: BAND 30 % (0-10); NEUTROPHILS 35 % (42.0-75.2)
[2016-12-06 09:01] LABS: TOTAL CELLS COUNTED 100
[2016-12-07 03:27] VITALS: BP 120/61; PULSE 69; TEMP 98.1; TEMP 99.2
[2016-12-07 06:18] LABS: MEAN CELL VOLUME 83 fl (80.0-100.0); MEAN CORPUSCULAR HGB CONC 34 g/dl (33.0-37.0); MEAN PLATELET VOLUME 9.8 fl (7.4-10.4); RED BLOOD COUNT 2.02 M/mm3 (4.20-5.60)
[2016-12-07 06:33] LABS: HEMATOCRIT 16.8 % (42.0-52.0); HEMOGLOBIN 5.7 g/dl (13.5-18.0); MEAN CORPUSCULAR HEMOGLOBIN 28 pg (27.0-31.0); PLATELET COUNT 15 K/mm3 (130-400); WHITE BLOOD COUNT 0.4 K/mm3 (4.8-10.8)
[2016-12-07 06:34] LABS: ADD PATHOLOGY DIFF REVIEW NO
[2016-12-07 06:42] LABS: ADJUSTED CALCIUM 10.4 mg/dL (8.4-10.2); ALBUMIN 2.6 gm/dL (3.5-5.0); BILIRUBIN,TOTAL 0.8 mg/dL (0.0-1.0); CALCIUM 9.3 mg/dL (8.4-10.2); CREATININE, serum 1.35 mg/dL (0.66-1.25); POTASSIUM 4.3 mmol/L (3.4-5.0); TOTAL PROTEIN 5.2 gm/dL (6.4-8.2)
[2016-12-07 07:16] LABS: BAND 20 % (0-10); NEUTROPHILS 20 % (42.0-75.2)
[2016-12-07 07:17] LABS: PLATELET ESTIMATE DECREASED (NORMAL); TOTAL CELLS COUNTED 15
[2016-12-07 07:41] VITALS: BP 117/58; PULSE 65; TEMP 98.7
[2016-12-07 17:18] VITALS: BP 137/66; PULSE 74; TEMP 98.8
[2016-12-07 19:59] VITALS: BP 134/64; PULSE 83; TEMP 98.4
[2016-12-08] VITALS (13 sets, daily range): BP systolic 119–151; BP diastolic 59–69; PULSE 55–76; TEMP 97.9–98.7
[2016-12-08 10:06] LABS: MEAN CELL VOLUME 83 fl (80.0-100.0); MEAN CORPUSCULAR HGB CONC 33 g/dl (33.0-37.0); RED BLOOD COUNT 1.89 M/mm3 (4.20-5.60); REDCELL DISTRIBUTION WIDTH-CV 13.2 % (11.5-14.5)
[2016-12-08 10:09] LABS: MEAN CORPUSCULAR HEMOGLOBIN 28 pg (27.0-31.0)
[2016-12-08 10:10] LABS: HEMATOCRIT 15.7 % (42.0-52.0)
[2016-12-08 10:26] LABS: HEMOGLOBIN 5.2 g/dl (13.5-18.0); WHITE BLOOD COUNT 0.3 K/mm3 (4.8-10.8)
[2016-12-08 10:27] LABS: ADD PATHOLOGY DIFF REVIEW NO; PLATELET COUNT 6 K/mm3 (130-400)
[2016-12-08 10:33] LABS: BAND 5 % (0-10); NEUTROPHILS 40 % (42.0-75.2)
[2016-12-08 10:36] LABS: HYPOCHROMIA 1+
[2016-12-08 10:37] LABS: TOTAL CELLS COUNTED 20
[2016-12-08 10:38] LABS: PLATELET ESTIMATE DECREASED (NORMAL)
[2016-12-09] VITALS (8 sets, daily range): BP systolic 132–164; BP diastolic 56–75; PULSE 58–79; TEMP 98.1–98.7
[2016-12-09 07:17] LABS: MEAN CELL VOLUME 84 fl (80.0-100.0); MEAN CORPUSCULAR HGB CONC 34 g/dl (33.0-37.0); MEAN PLATELET VOLUME 11.1 fl (7.4-10.4); RED BLOOD COUNT 2.57 M/mm3 (4.20-5.60); REDCELL DISTRIBUTION WIDTH-CV 13.3 % (11.5-14.5)
[2016-12-09 07:25] LABS: HEMATOCRIT 21.5 % (42.0-52.0); MEAN CORPUSCULAR HEMOGLOBIN 28 pg (27.0-31.0); PLATELET COUNT 6 K/mm3 (130-400); WHITE BLOOD COUNT 0.3 K/mm3 (4.8-10.8)
[2016-12-09 07:26] LABS: ADD PATHOLOGY DIFF REVIEW NO
[2016-12-09 07:28] LABS: CALCIUM 9.2 mg/dL (8.4-10.2); CREATININE, serum 1.16 mg/dL (0.66-1.25); POTASSIUM 4.3 mmol/L (3.4-5.0)
[2016-12-09 08:02] LABS: BAND 12 % (0-10); HYPOCHROMIA 2+; NEUTROPHILS 32 % (42.0-75.2); PLATELET ESTIMATE DECREASED (NORMAL)
[2016-12-09 08:03] LABS: HEMOGLOBIN 7.3 g/dl (13.5-18.0); TOTAL CELLS COUNTED 25
[2017-02-07] MEDS ORDERED: JADENU90 MG PO (14:37)
[2017-04-01] MEDS ORDERED: PRILOSEC 20MG20 MG PO (09:53)
[2017-04-01] MEDS ORDERED: DECADRON 4MG TAB4 MG PO (09:54)
== END 2016-12-09 17:20 | disposition home or self-care (01) | DRG 809 ==
LOC: COL.ER 19:58 → MEDICAL 22:17
PROVIDERS: Emergency Medicine; Internal Medicine
DX: D70.9 Neutropenia, unspecified (principal); Z94.81 Bone marrow transplant status; D46.9 Myelodysplastic syndrome, unspecified; R50.81 Fever presenting with conditions classified elsewhere; I12.9 Hypertensive chronic kidney disease with stage 1 through stage 4 chronic kidney disease, or unspecified chronic kidney disease; N18.3 Chronic kidney disease, stage 3 (moderate)
CPT/HCPCS: 99223-AI; 99232-AI; 99239; J0692; J1644; J3370; J7030; J7040; J7050; P9037; P9040

== ENCOUNTER 2017-02-18 08:00 | Outpatient (RCR) | payer MEDICARE, BC ==
[2016-11-22 08:15] VITALS: BP 115/65; PULSE 81; TEMP 97.8
[2016-11-22 08:17] LABS: ADD PATHOLOGY DIFF REVIEW NO
[2016-11-22 08:29] LABS: MEAN CELL VOLUME 83 fl (80.0-100.0); MEAN CORPUSCULAR HGB CONC 34 g/dl (33.0-37.0); MEAN PLATELET VOLUME 9.5 fl (7.4-10.4); RED BLOOD COUNT 2.59 M/mm3 (4.20-5.60); REDCELL DISTRIBUTION WIDTH-CV 13.6 % (11.5-14.5)
[2016-11-22 08:30] LABS: ADJUSTED CALCIUM 10.9 mg/dL (8.4-10.2); ALBUMIN 3.6 gm/dL (3.5-5.0); BILIRUBIN,TOTAL 0.7 mg/dL (0.0-1.0); CALCIUM 10.6 mg/dL (8.4-10.2); CREATININE, serum 1.64 mg/dL (0.66-1.25); POTASSIUM 4.5 mmol/L (3.4-5.0); TOTAL PROTEIN 6.3 gm/dL (6.4-8.2)
[2016-11-22 08:49] LABS: HEMATOCRIT 21.4 % (42.0-52.0); HEMOGLOBIN 7.3 g/dl (13.5-18.0); MEAN CORPUSCULAR HEMOGLOBIN 28 pg (27.0-31.0); PLATELET COUNT 33 K/mm3 (130-400); WHITE BLOOD COUNT 0.6 K/mm3 (4.8-10.8)
[2016-11-22 09:29] LABS: BAND 4 % (0-10); METAMYELOCYTE 4 % (0-0); NEUTROPHILS 52 % (42.0-75.2)
[2016-11-22 09:30] LABS: PLATELET ESTIMATE DECREASED (NORMAL); TOTAL CELLS COUNTED 25
[2016-11-22 10:50] VITALS: BP 139/82; PULSE 62; TEMP 98.1
[2016-11-22 11:04] VITALS: BP 147/80; PULSE 57; TEMP 97.7
[2016-11-22 11:34] VITALS: BP 166/80; PULSE 55; TEMP 98.1
[2016-11-22 12:26] VITALS: BP 177/93; PULSE 66; TEMP 98.1
[2016-11-26 08:23] VITALS: BP 128/72; PULSE 85; TEMP 97.9
[2016-11-26 08:26] LABS: ADD PATHOLOGY DIFF REVIEW NO
[2016-11-26 08:30] LABS: MEAN CELL VOLUME 83 fl (80.0-100.0); MEAN CORPUSCULAR HGB CONC 34 g/dl (33.0-37.0); MEAN PLATELET VOLUME 10.5 fl (7.4-10.4); REDCELL DISTRIBUTION WIDTH-CV 13.5 % (11.5-14.5)
[2016-11-26 08:34] LABS: HEMATOCRIT 22.3 % (42.0-52.0); HEMOGLOBIN 7.5 g/dl (13.5-18.0); MEAN CORPUSCULAR HEMOGLOBIN 28 pg (27.0-31.0); PLATELET COUNT 6 K/mm3 (130-400); WHITE BLOOD COUNT 0.3 K/mm3 (4.8-10.8)
[2016-11-26 08:43] LABS: ADJUSTED CALCIUM 10.6 mg/dL (8.4-10.2); ALBUMIN 3.2 gm/dL (3.5-5.0); BAND 4 % (0-10); BILIRUBIN,TOTAL 0.9 mg/dL (0.0-1.0); CREATININE, serum 1.45 mg/dL (0.66-1.25); METAMYELOCYTE 4 % (0-0); NEUTROPHILS 36 % (42.0-75.2); POTASSIUM 4.2 mmol/L (3.4-5.0); TOTAL CELLS COUNTED 100; TOTAL PROTEIN 5.8 gm/dL (6.4-8.2)
[2016-11-26 08:45] LABS: MICROCYTOSIS 3+; SPHEROCYTE 1+
[2016-11-26 08:46] LABS: ANISOCYTOSIS 1+; HYPOCHROMIA 1+
[2016-11-26 14:51] VITALS: BP 131/70; PULSE 80; TEMP 98.6
[2016-11-26 15:06] VITALS: BP 139/75; PULSE 84; TEMP 98.2
[2016-11-26 15:27] VITALS: BP 129/76; PULSE 78; TEMP 98.3
[2016-11-26 15:43] VITALS: BP 137/71; PULSE 70; TEMP 98.4
[2016-11-26 16:10] VITALS: BP 137/75; PULSE 70; TEMP 98.4
[2016-11-29 08:16] VITALS: BP 130/69; PULSE 60; TEMP 97.8
[2016-11-29 08:22] LABS: MEAN CELL VOLUME 83 fl (80.0-100.0); MEAN CORPUSCULAR HGB CONC 33 g/dl (33.0-37.0); MEAN PLATELET VOLUME 9.2 fl (7.4-10.4); RED BLOOD COUNT 2.46 M/mm3 (4.20-5.60); REDCELL DISTRIBUTION WIDTH-CV 13.6 % (11.5-14.5); WHITE BLOOD COUNT 2.7 K/mm3 (4.8-10.8)
[2016-11-29 08:33] LABS: ADJUSTED CALCIUM 11.2 mg/dL (8.4-10.2); ALBUMIN 3.3 gm/dL (3.5-5.0); BILIRUBIN,TOTAL 0.7 mg/dL (0.0-1.0); CALCIUM 10.6 mg/dL (8.4-10.2); CREATININE, serum 1.53 mg/dL (0.66-1.25); POTASSIUM 4.5 mmol/L (3.4-5.0)
[2016-11-29 08:35] LABS: HEMATOCRIT 20.4 % (42.0-52.0); HEMOGLOBIN 6.8 g/dl (13.5-18.0); MEAN CORPUSCULAR HEMOGLOBIN 28 pg (27.0-31.0)
[2016-11-29 08:36] LABS: PLATELET COUNT 14 K/mm3 (130-400)
[2016-11-29 12:48] LABS: BAND 24 % (0-10); METAMYELOCYTE 10 % (0-0); MYELOCYTE 2 % (0-0); PLATELET ESTIMATE DECREASED (NORMAL)
[2016-11-29 12:53] LABS: ADD PATHOLOGY DIFF REVIEW YES
[2016-11-29 12:55] LABS: EOSINOPHIL 10 % (0-4)
[2016-11-29 12:57] LABS: NEUTROPHILS 35 % (42.0-75.2)
[2016-11-29 12:58] LABS: ANISOCYTOSIS 1+; OVALOCYTES 1+
[2016-11-29 13:12] LABS: TOTAL CELLS COUNTED 100
[2016-11-29 13:55] VITALS: BP 126/63; PULSE 71; TEMP 98.5
[2016-11-29 14:16] VITALS: BP 123/64; PULSE 70; TEMP 98.1
[2016-11-29 14:30] VITALS: BP 120/62; PULSE 71; TEMP 98.2
[2016-11-29 15:00] VITALS: BP 142/72; PULSE 63; TEMP 98.3
[2016-11-29 15:55] VITALS: BP 150/75; PULSE 63; TEMP 98
[2016-11-30 08:22] LABS: PATHOLOGY DIFF REVIEW OK
[2016-12-03] VITALS (8 sets, daily range): BP systolic 105–128; BP diastolic 64–74; PULSE 65–102; TEMP 97.9–98.2
[2016-12-03 08:47] LABS: ADD PATHOLOGY DIFF REVIEW NO
[2016-12-03 09:09] LABS: MEAN CELL VOLUME 81 fl (80.0-100.0); MEAN CORPUSCULAR HGB CONC 34 g/dl (33.0-37.0); RED BLOOD COUNT 2.67 M/mm3 (4.20-5.60); REDCELL DISTRIBUTION WIDTH-CV 13.2 % (11.5-14.5)
[2016-12-03 09:18] LABS: HEMATOCRIT 21.5 % (42.0-52.0); HEMOGLOBIN 7.3 g/dl (13.5-18.0); MEAN CORPUSCULAR HEMOGLOBIN 27 pg (27.0-31.0); PLATELET COUNT 3 K/mm3 (130-400); WHITE BLOOD COUNT 0.9 K/mm3 (4.8-10.8)
[2016-12-03 09:32] LABS: ADJUSTED CALCIUM 10.6 mg/dL (8.4-10.2); ALBUMIN 3.4 gm/dL (3.5-5.0); BILIRUBIN,TOTAL 1.2 mg/dL (0.0-1.0); CALCIUM 10.1 mg/dL (8.4-10.2); CREATININE, serum 1.4 mg/dL (0.66-1.25); POTASSIUM 3.9 mmol/L (3.4-5.0); TOTAL PROTEIN 6.4 gm/dL (6.4-8.2)
[2016-12-03 11:05] LABS: BAND 20 % (0-10); NEUTROPHILS 44 % (42.0-75.2); PLATELET ESTIMATE DECREASED (NORMAL); TOTAL CELLS COUNTED 25
[2016-12-10 08:23] VITALS: BP 125/70; PULSE 60; TEMP 98
[2016-12-10 08:23] LABS: ADD PATHOLOGY DIFF REVIEW NO
[2016-12-10 08:37] LABS: ADJUSTED CALCIUM 10.8 mg/dL (8.4-10.2); ALBUMIN 3.2 gm/dL (3.5-5.0); BILIRUBIN,TOTAL 0.9 mg/dL (0.0-1.0); CALCIUM 10.2 mg/dL (8.4-10.2); CREATININE, serum 1.13 mg/dL (0.66-1.25); TOTAL PROTEIN 5.9 gm/dL (6.4-8.2)
[2016-12-10 08:38] LABS: MEAN CELL VOLUME 83 fl (80.0-100.0); MEAN CORPUSCULAR HGB CONC 35 g/dl (33.0-37.0); MEAN PLATELET VOLUME 9.7 fl (7.4-10.4); RED BLOOD COUNT 2.74 M/mm3 (4.20-5.60); REDCELL DISTRIBUTION WIDTH-CV 13.4 % (11.5-14.5)
[2016-12-10 08:40] LABS: HEMATOCRIT 22.7 % (42.0-52.0); HEMOGLOBIN 7.9 g/dl (13.5-18.0); MEAN CORPUSCULAR HEMOGLOBIN 29 pg (27.0-31.0)
[2016-12-10 08:42] LABS: PLATELET COUNT 17 K/mm3 (130-400); WHITE BLOOD COUNT 0.2 K/mm3 (4.8-10.8)
[2016-12-10 11:09] LABS: BAND 20 % (0-10); METAMYELOCYTE 10 % (0-0); MYELOCYTE 10 % (0-0); NEUTROPHILS 10 % (42.0-75.2)
[2016-12-10 11:10] LABS: TOTAL CELLS COUNTED 100
[2016-12-13 08:27] LABS: ADD PATHOLOGY DIFF REVIEW NO
[2016-12-13 08:39] LABS: MEAN CELL VOLUME 81 fl (80.0-100.0); MEAN CORPUSCULAR HGB CONC 35 g/dl (33.0-37.0); MEAN PLATELET VOLUME 11.6 fl (7.4-10.4); RED BLOOD COUNT 2.91 M/mm3 (4.20-5.60)
[2016-12-13 08:43] VITALS: BP 98/53; PULSE 87; TEMP 98.5
[2016-12-13 09:04] LABS: HEMATOCRIT 23.7 % (42.0-52.0); HEMOGLOBIN 8.2 g/dl (13.5-18.0); MEAN CORPUSCULAR HEMOGLOBIN 28 pg (27.0-31.0); WHITE BLOOD COUNT 0.3 K/mm3 (4.8-10.8)
[2016-12-13 09:05] LABS: PLATELET COUNT 7 K/mm3 (130-400)
[2016-12-13 09:33] LABS: PLATELET ESTIMATE DECREASED (NORMAL); TOTAL CELLS COUNTED 100
[2016-12-13 09:37] LABS: NEUTROPHILS 16 % (42.0-75.2)
[2016-12-13 10:10] LABS: ADJUSTED CALCIUM 10.9 mg/dL (8.4-10.2); ALBUMIN 3.1 gm/dL (3.5-5.0); BILIRUBIN,TOTAL 1.1 mg/dL (0.0-1.0); CALCIUM 10.2 mg/dL (8.4-10.2); CREATININE, serum 1.23 mg/dL (0.66-1.25); POTASSIUM 4.2 mmol/L (3.4-5.0); TOTAL PROTEIN 5.7 gm/dL (6.4-8.2)
[2016-12-14 13:52] VITALS: BP 112/68; PULSE 71; TEMP 97.8
[2016-12-14 14:10] VITALS: BP 106/59; PULSE 67; TEMP 98.4
[2016-12-14 14:26] VITALS: BP 129/59; PULSE 59; TEMP 98.6
[2016-12-14 14:35] VITALS: BP 106/62; PULSE 61; TEMP 98.7
[2016-12-17] VITALS (10 sets, daily range): BP systolic 105–176; BP diastolic 57–94; PULSE 52–78; TEMP 98–98.5
[2016-12-17 08:34] LABS: ADD PATHOLOGY DIFF REVIEW NO
[2016-12-17 08:38] LABS: MEAN CELL VOLUME 83 fl (80.0-100.0); MEAN CORPUSCULAR HGB CONC 34 g/dl (33.0-37.0); MEAN PLATELET VOLUME 8.8 fl (7.4-10.4); REDCELL DISTRIBUTION WIDTH-CV 12.8 % (11.5-14.5)
[2016-12-17 08:57] LABS: ADJUSTED CALCIUM 10.7 mg/dL (8.4-10.2); ALBUMIN 3.3 gm/dL (3.5-5.0); BILIRUBIN,TOTAL 0.8 mg/dL (0.0-1.0); CALCIUM 10.1 mg/dL (8.4-10.2); CREATININE, serum 1.4 mg/dL (0.66-1.25); POTASSIUM 3.9 mmol/L (3.4-5.0); TOTAL PROTEIN 5.9 gm/dL (6.4-8.2)
[2016-12-17 08:58] LABS: WHITE BLOOD COUNT 0.3 K/mm3 (4.8-10.8)
[2016-12-17 08:59] LABS: HEMATOCRIT 20.8 % (42.0-52.0); MEAN CORPUSCULAR HEMOGLOBIN 28 pg (27.0-31.0)
[2016-12-17 09:00] LABS: PLATELET COUNT 8 K/mm3 (130-400)
[2016-12-17 09:17] LABS: BAND 4 % (0-10); HYPOCHROMIA 2+; NEUTROPHILS 40 % (42.0-75.2); PLATELET ESTIMATE DECREASED (NORMAL)
[2016-12-17 09:18] LABS: TOTAL CELLS COUNTED 25
[2016-12-20 08:13] LABS: ADD PATHOLOGY DIFF REVIEW NO
[2016-12-20 08:17] VITALS: BP 133/76; PULSE 73; TEMP 97.6
[2016-12-20 08:27] LABS: MEAN CELL VOLUME 82 fl (80.0-100.0); MEAN CORPUSCULAR HGB CONC 35 g/dl (33.0-37.0); MEAN PLATELET VOLUME 10.8 fl (7.4-10.4); RED BLOOD COUNT 2.68 M/mm3 (4.20-5.60); REDCELL DISTRIBUTION WIDTH-CV 12.9 % (11.5-14.5)
[2016-12-20 08:33] LABS: ADJUSTED CALCIUM 10.7 mg/dL (8.4-10.2); ALBUMIN 3.5 gm/dL (3.5-5.0); BILIRUBIN,TOTAL 0.9 mg/dL (0.0-1.0); CALCIUM 10.3 mg/dL (8.4-10.2); CREATININE, serum 1.36 mg/dL (0.66-1.25); POTASSIUM 4.1 mmol/L (3.4-5.0); TOTAL PROTEIN 6.3 gm/dL (6.4-8.2)
[2016-12-20 08:52] LABS: HEMOGLOBIN 7.6 g/dl (13.5-18.0); MEAN CORPUSCULAR HEMOGLOBIN 28 pg (27.0-31.0); PLATELET COUNT 10 K/mm3 (130-400); WHITE BLOOD COUNT 0.6 K/mm3 (4.8-10.8)
[2016-12-20 10:24] LABS: BAND 20 % (0-10); METAMYELOCYTE 8 % (0-0); NEUTROPHILS 32 % (42.0-75.2)
[2016-12-20 10:25] LABS: PLATELET ESTIMATE DECREASED (NORMAL)
[2016-12-20 10:27] LABS: TOTAL CELLS COUNTED 100
[2016-12-21 13:45] VITALS: BP 126/84; PULSE 85; TEMP 98
[2016-12-21 14:05] VITALS: BP 136/90; PULSE 81; TEMP 98.1
[2016-12-21 14:22] VITALS: BP 147/85; PULSE 72; TEMP 98.3
[2016-12-24 08:11] VITALS: BP 116/73; PULSE 97; TEMP 97.8
[2016-12-24 08:40] LABS: ADD PATHOLOGY DIFF REVIEW NO
[2016-12-24 08:48] LABS: MEAN CELL VOLUME 84 fl (80.0-100.0); MEAN CORPUSCULAR HGB CONC 34 g/dl (33.0-37.0); MEAN PLATELET VOLUME 8.7 fl (7.4-10.4); RED BLOOD COUNT 2.54 M/mm3 (4.20-5.60); REDCELL DISTRIBUTION WIDTH-CV 12.9 % (11.5-14.5)
[2016-12-24 09:13] LABS: ADJUSTED CALCIUM 10.7 mg/dL (8.4-10.2); ALBUMIN 3.3 gm/dL (3.5-5.0); BILIRUBIN,TOTAL 1.1 mg/dL (0.0-1.0); CALCIUM 10.1 mg/dL (8.4-10.2); CREATININE, serum 1.4 mg/dL (0.66-1.25); POTASSIUM 4.2 mmol/L (3.4-5.0); TOTAL PROTEIN 6.1 gm/dL (6.4-8.2)
[2016-12-24 09:21] LABS: BAND 8 % (0-10); HYPOCHROMIA 2+; NEUTROPHILS 32 % (42.0-75.2); PLATELET ESTIMATE DECREASED (NORMAL); TOTAL CELLS COUNTED 25
[2016-12-24 09:22] LABS: HEMATOCRIT 21.3 % (42.0-52.0); HEMOGLOBIN 7.2 g/dl (13.5-18.0); MEAN CORPUSCULAR HEMOGLOBIN 28 pg (27.0-31.0); WHITE BLOOD COUNT 0.3 K/mm3 (4.8-10.8)
[2016-12-24 09:23] LABS: PLATELET COUNT 11 K/mm3 (130-400)
[2016-12-25 14:43] VITALS: BP 121/62; PULSE 70; TEMP 97.7
[2016-12-25 14:58] VITALS: BP 122/61; PULSE 63; TEMP 97.8
[2016-12-25 15:20] VITALS: BP 129/64; PULSE 67; TEMP 98.1
[2016-12-25 15:35] VITALS: BP 132/67; PULSE 79; TEMP 98.2
[2016-12-27 08:10] VITALS: BP 107/74; PULSE 76; TEMP 97.7
[2016-12-27 08:31] LABS: ADD PATHOLOGY DIFF REVIEW NO
[2016-12-27 08:36] LABS: MEAN CELL VOLUME 84 fl (80.0-100.0); MEAN CORPUSCULAR HGB CONC 34 g/dl (33.0-37.0); MEAN PLATELET VOLUME 10.3 fl (7.4-10.4); RED BLOOD COUNT 2.41 M/mm3 (4.20-5.60)
[2016-12-27 08:48] LABS: ADJUSTED CALCIUM 10.5 mg/dL (8.4-10.2); ALBUMIN 3.5 gm/dL (3.5-5.0); BILIRUBIN,TOTAL 0.8 mg/dL (0.0-1.0); CALCIUM 10.1 mg/dL (8.4-10.2); CREATININE, serum 1.37 mg/dL (0.66-1.25); POTASSIUM 4.3 mmol/L (3.4-5.0); TOTAL PROTEIN 6.3 gm/dL (6.4-8.2)
[2016-12-27 08:49] LABS: WHITE BLOOD COUNT 0.5 K/mm3 (4.8-10.8)
[2016-12-27 08:50] LABS: HEMATOCRIT 20.3 % (42.0-52.0); HEMOGLOBIN 6.9 g/dl (13.5-18.0); MEAN CORPUSCULAR HEMOGLOBIN 29 pg (27.0-31.0); PLATELET COUNT 15 K/mm3 (130-400)
[2016-12-27 09:27] LABS: BAND 8 % (0-10); NEUTROPHILS 28 % (42.0-75.2); PLATELET ESTIMATE DECREASED (NORMAL); TOTAL CELLS COUNTED 50
[2016-12-27 14:39] VITALS: BP 118/70; PULSE 82; TEMP 97.7
[2016-12-27 14:58] VITALS: BP 121/66; PULSE 79; TEMP 98.8
[2016-12-27 15:20] VITALS: BP 117/66; PULSE 72; TEMP 98.2
[2016-12-27 15:50] VITALS: BP 131/73; PULSE 67; TEMP 98
[2016-12-27 16:13] VITALS: BP 120/72; PULSE 71; TEMP 97.9
[2016-12-31] VITALS (10 sets, daily range): BP systolic 97–134; BP diastolic 56–76; PULSE 58–77; TEMP 97.8–98.6
[2016-12-31 08:26] LABS: ADD PATHOLOGY DIFF REVIEW NO
[2016-12-31 08:50] LABS: MEAN CELL VOLUME 83 fl (80.0-100.0); MEAN CORPUSCULAR HGB CONC 33 g/dl (33.0-37.0); MEAN PLATELET VOLUME 13.1 fl (7.4-10.4); RED BLOOD COUNT 2.28 M/mm3 (4.20-5.60); REDCELL DISTRIBUTION WIDTH-CV 12.7 % (11.5-14.5)
[2016-12-31 08:52] LABS: ADJUSTED CALCIUM 10.4 mg/dL (8.4-10.2); ALBUMIN 3.3 gm/dL (3.5-5.0); BILIRUBIN,TOTAL 0.9 mg/dL (0.0-1.0); CALCIUM 9.8 mg/dL (8.4-10.2); CREATININE, serum 1.36 mg/dL (0.66-1.25); POTASSIUM 4.2 mmol/L (3.4-5.0); TOTAL PROTEIN 5.9 gm/dL (6.4-8.2)
[2016-12-31 08:54] LABS: HEMATOCRIT 18.9 % (42.0-52.0); HEMOGLOBIN 6.3 g/dl (13.5-18.0); MEAN CORPUSCULAR HEMOGLOBIN 28 pg (27.0-31.0); WHITE BLOOD COUNT 0.3 K/mm3 (4.8-10.8)
[2016-12-31 08:55] LABS: PLATELET COUNT 4 K/mm3 (130-400)
[2016-12-31 11:32] LABS: BAND 36 % (0-10); EOSINOPHIL 4 % (0-4); METAMYELOCYTE 8 % (0-0); NEUTROPHILS 12 % (42.0-75.2); PLATELET ESTIMATE DECREASED (NORMAL)
[2016-12-31 11:33] LABS: TOTAL CELLS COUNTED 25
[2017-01-01 14:16] VITALS: BP 111/72; PULSE 76; TEMP 98.2
[2017-01-01 14:36] VITALS: BP 105/65; PULSE 77; TEMP 99.3
[2017-01-01 14:51] VITALS: BP 100/62; PULSE 70; TEMP 98.3
[2017-01-01 15:15] VITALS: BP 110/65; PULSE 67; TEMP 98.7
[2017-01-03 08:37] VITALS: BP 103/60; PULSE 91; TEMP 97.9
[2017-01-03 08:42] LABS: ADD PATHOLOGY DIFF REVIEW NO
[2017-01-03 09:09] LABS: MEAN CELL VOLUME 84 fl (80.0-100.0); MEAN CORPUSCULAR HGB CONC 34 g/dl (33.0-37.0); MEAN PLATELET VOLUME 10.5 fl (7.4-10.4)
[2017-01-03 09:13] LABS: HEMATOCRIT 19.3 % (42.0-52.0); HEMOGLOBIN 6.5 g/dl (13.5-18.0); MEAN CORPUSCULAR HEMOGLOBIN 28 pg (27.0-31.0)
[2017-01-03 09:14] LABS: PLATELET COUNT 13 K/mm3 (130-400); WHITE BLOOD COUNT 0.2 K/mm3 (4.8-10.8)
[2017-01-03 13:39] VITALS: BP 118/67; PULSE 69; TEMP 98.5
[2017-01-03 13:43] LABS: BAND 8 % (0-10); EOSINOPHIL 2 % (0-4); NEUTROPHILS 28 % (42.0-75.2); PLATELET ESTIMATE DECREASED (NORMAL); TOTAL CELLS COUNTED 50
[2017-01-03 13:54] VITALS: BP 115/65; PULSE 63; TEMP 97.8
[2017-01-03 14:09] VITALS: BP 93/53; PULSE 74; TEMP 97.2
[2017-01-03 15:19] VITALS: BP 127/67; PULSE 62; TEMP 97.4
[2017-01-07 08:21] LABS: MEAN CELL VOLUME 85 fl (80.0-100.0); MEAN CORPUSCULAR HGB CONC 33 g/dl (33.0-37.0); MEAN PLATELET VOLUME 13.3 fl (7.4-10.4); RED BLOOD COUNT 2.59 M/mm3 (4.20-5.60)
[2017-01-07 08:28] LABS: HEMATOCRIT 21.9 % (42.0-52.0); MEAN CORPUSCULAR HEMOGLOBIN 28 pg (27.0-31.0)
[2017-01-07 08:29] LABS: PLATELET COUNT 4 K/mm3 (130-400); WHITE BLOOD COUNT 0.3 K/mm3 (4.8-10.8)
[2017-01-07 08:30] LABS: HEMOGLOBIN 7.2 g/dl (13.5-18.0)
[2017-01-07 08:45] VITALS: BP 102/61; PULSE 96; TEMP 97.6
[2017-01-07 08:46] LABS: ADJUSTED CALCIUM 10.6 mg/dL (8.4-10.2); ALBUMIN 3.3 gm/dL (3.5-5.0); CREATININE, serum 1.24 mg/dL (0.66-1.25); TOTAL PROTEIN 6.1 gm/dL (6.4-8.2)
[2017-01-08] VITALS (7 sets, daily range): BP systolic 104–135; BP diastolic 63–75; PULSE 68–88; TEMP 97.6–98.1
[2017-01-10 08:28] VITALS: BP 100/59; PULSE 83; TEMP 97.9
[2017-01-10 08:28] LABS: ADD PATHOLOGY DIFF REVIEW NO
[2017-01-10 08:36] LABS: MEAN CELL VOLUME 83 fl (80.0-100.0); MEAN CORPUSCULAR HGB CONC 34 g/dl (33.0-37.0); MEAN PLATELET VOLUME 10.4 fl (7.4-10.4); RED BLOOD COUNT 2.11 M/mm3 (4.20-5.60)
[2017-01-10 08:43] LABS: ADJUSTED CALCIUM 10.4 mg/dL (8.4-10.2); ALBUMIN 3.2 gm/dL (3.5-5.0); BILIRUBIN,TOTAL 0.8 mg/dL (0.0-1.0); CALCIUM 9.8 mg/dL (8.4-10.2); CREATININE, serum 1.28 mg/dL (0.66-1.25); POTASSIUM 3.9 mmol/L (3.4-5.0); TOTAL PROTEIN 5.9 gm/dL (6.4-8.2)
[2017-01-10 08:59] LABS: HEMATOCRIT 17.5 % (42.0-52.0); MEAN CORPUSCULAR HEMOGLOBIN 28 pg (27.0-31.0)
[2017-01-10 09:00] LABS: HEMOGLOBIN 5.9 g/dl (13.5-18.0); PLATELET COUNT 24 K/mm3 (130-400); WHITE BLOOD COUNT 0.2 K/mm3 (4.8-10.8)
[2017-01-10 09:15] LABS: BAND 4 % (0-10); BASOPHIL 4 % (0-2); EOSINOPHIL 8 % (0-4); NEUTROPHILS 44 % (42.0-75.2); PLATELET ESTIMATE DECREASED (NORMAL)
[2017-01-10 09:18] LABS: TOTAL CELLS COUNTED 25
[2017-01-10 11:43] VITALS: BP 115/61; PULSE 66; TEMP 97.8
[2017-01-10 12:05] VITALS: BP 114/56; PULSE 76; TEMP 97.6
[2017-01-10 12:20] VITALS: BP 124/55; PULSE 55; TEMP 98.5
[2017-01-10 12:50] VITALS: BP 122/65; PULSE 56; TEMP 97.5
[2017-01-10 13:33] VITALS: BP 125/72; PULSE 56; TEMP 97.2
[2017-01-14] VITALS (9 sets, daily range): BP systolic 109–156; BP diastolic 54–81; PULSE 62–97; TEMP 97.5–99
[2017-01-14 08:18] LABS: ADD PATHOLOGY DIFF REVIEW NO
[2017-01-14 08:25] LABS: MEAN CELL VOLUME 82 fl (80.0-100.0); MEAN CORPUSCULAR HGB CONC 34 g/dl (33.0-37.0); MEAN PLATELET VOLUME 10.2 fl (7.4-10.4); REDCELL DISTRIBUTION WIDTH-CV 13.1 % (11.5-14.5)
[2017-01-14 08:34] LABS: ADJUSTED CALCIUM 10.4 mg/dL (8.4-10.2); ALBUMIN 3.1 gm/dL (3.5-5.0); BILIRUBIN,TOTAL 0.9 mg/dL (0.0-1.0); CALCIUM 9.7 mg/dL (8.4-10.2); CREATININE, serum 1.19 mg/dL (0.66-1.25); POTASSIUM 3.9 mmol/L (3.4-5.0); TOTAL PROTEIN 5.8 gm/dL (6.4-8.2)
[2017-01-14 08:43] LABS: HEMOGLOBIN 6.1 g/dl (13.5-18.0); MEAN CORPUSCULAR HEMOGLOBIN 28 pg (27.0-31.0)
[2017-01-14 08:44] LABS: PLATELET COUNT 8 K/mm3 (130-400); WHITE BLOOD COUNT 0.2 K/mm3 (4.8-10.8)
[2017-01-14 09:16] LABS: BAND 20 % (0-10); EOSINOPHIL 10 % (0-4); NEUTROPHILS 20 % (42.0-75.2)
[2017-01-14 09:18] LABS: PLATELET ESTIMATE DECREASED (NORMAL); TOTAL CELLS COUNTED 10
[2017-01-17 08:23] LABS: ADD PATHOLOGY DIFF REVIEW NO
[2017-01-17 08:27] LABS: MEAN CELL VOLUME 82 fl (80.0-100.0); MEAN CORPUSCULAR HGB CONC 34 g/dl (33.0-37.0); MEAN PLATELET VOLUME 11.2 fl (7.4-10.4); RED BLOOD COUNT 2.69 M/mm3 (4.20-5.60); REDCELL DISTRIBUTION WIDTH-CV 12.9 % (11.5-14.5)
[2017-01-17 08:31] VITALS: BP 106/69; PULSE 76; TEMP 97.9
[2017-01-17 08:33] LABS: WHITE BLOOD COUNT 0.3 K/mm3 (4.8-10.8)
[2017-01-17 08:34] LABS: HEMOGLOBIN 7.5 g/dl (13.5-18.0); MEAN CORPUSCULAR HEMOGLOBIN 28 pg (27.0-31.0); PLATELET COUNT 8 K/mm3 (130-400)
[2017-01-17 08:43] LABS: ADJUSTED CALCIUM 10.6 mg/dL (8.4-10.2); ALBUMIN 3.2 gm/dL (3.5-5.0); BILIRUBIN,TOTAL 1.3 mg/dL (0.0-1.0); CREATININE, serum 1.34 mg/dL (0.66-1.25); POTASSIUM 4.1 mmol/L (3.4-5.0)
[2017-01-17 10:12] LABS: BAND 12 % (0-10); METAMYELOCYTE 8 % (0-0); NEUTROPHILS 20 % (42.0-75.2); PLATELET ESTIMATE DECREASED (NORMAL); TOTAL CELLS COUNTED 25
[2017-01-18 14:17] VITALS: BP 127/63; PULSE 81; TEMP 97.7
[2017-01-18 14:49] VITALS: BP 113/72; PULSE 69; TEMP 97.1
[2017-01-18 15:04] VITALS: BP 126/85; PULSE 60; TEMP 97.6
[2017-01-18 15:34] VITALS: BP 122/71; PULSE 67; TEMP 97.8
[2017-01-21 08:33] VITALS: BP 106/59; PULSE 88; TEMP 97.2
[2017-01-21 08:38] LABS: ADD PATHOLOGY DIFF REVIEW NO
[2017-01-21 08:42] LABS: MEAN CELL VOLUME 82 fl (80.0-100.0); MEAN CORPUSCULAR HGB CONC 34 g/dl (33.0-37.0); MEAN PLATELET VOLUME 10.1 fl (7.4-10.4); RED BLOOD COUNT 2.46 M/mm3 (4.20-5.60); REDCELL DISTRIBUTION WIDTH-CV 12.8 % (11.5-14.5)
[2017-01-21 08:49] LABS: WHITE BLOOD COUNT 0.3 K/mm3 (4.8-10.8)
[2017-01-21 08:50] LABS: HEMATOCRIT 20.2 % (42.0-52.0); HEMOGLOBIN 6.8 g/dl (13.5-18.0); MEAN CORPUSCULAR HEMOGLOBIN 28 pg (27.0-31.0); PLATELET COUNT 16 K/mm3 (130-400)
[2017-01-21 08:54] LABS: ADJUSTED CALCIUM 10.3 mg/dL (8.4-10.2); ALBUMIN 3.2 gm/dL (3.5-5.0); BILIRUBIN,TOTAL 0.9 mg/dL (0.0-1.0); CALCIUM 9.7 mg/dL (8.4-10.2); CREATININE, serum 1.35 mg/dL (0.66-1.25); POTASSIUM 4.1 mmol/L (3.4-5.0); TOTAL PROTEIN 5.9 gm/dL (6.4-8.2)
[2017-01-21 09:47] LABS: BAND 8 % (0-10); NEUTROPHILS 18 % (42.0-75.2); TOTAL CELLS COUNTED 50
[2017-01-21 09:48] LABS: PLATELET ESTIMATE DECREASED (NORMAL)
[2017-01-21 10:40] VITALS: BP 128/78; PULSE 65; TEMP 98
[2017-01-21 10:55] VITALS: BP 138/80; PULSE 65; TEMP 98.1
[2017-01-21 11:25] VITALS: BP 128/77; PULSE 59; TEMP 98.1
[2017-01-21 12:18] VITALS: BP 152/77; PULSE 62; TEMP 97.9
[2017-01-24 08:19] VITALS: BP 146/73; PULSE 60; TEMP 97.4
[2017-01-24 08:32] LABS: ADJUSTED CALCIUM 10.6 mg/dL (8.4-10.2); ALBUMIN 3.4 gm/dL (3.5-5.0); BILIRUBIN,TOTAL 0.9 mg/dL (0.0-1.0); CALCIUM 10.1 mg/dL (8.4-10.2); CREATININE, serum 1.45 mg/dL (0.66-1.25); POTASSIUM 4.6 mmol/L (3.4-5.0); TOTAL PROTEIN 6.2 gm/dL (6.4-8.2)
[2017-01-24 09:27] LABS: ADD PATHOLOGY DIFF REVIEW NO
[2017-01-24 09:33] LABS: MEAN CORPUSCULAR HGB CONC 34 g/dl (33.0-37.0); RED BLOOD COUNT 2.61 M/mm3 (4.20-5.60); REDCELL DISTRIBUTION WIDTH-CV 12.9 % (11.5-14.5)
[2017-01-24 10:32] LABS: WHITE BLOOD COUNT 0.4 K/mm3 (4.8-10.8)
[2017-01-24 10:33] LABS: HEMOGLOBIN 7.3 g/dl (13.5-18.0); MEAN CORPUSCULAR HEMOGLOBIN 28 pg (27.0-31.0)
[2017-01-24 10:59] LABS: BAND 4 % (0-10); HEMATOCRIT 21.2 % (42.0-52.0); NEUTROPHILS 16 % (42.0-75.2); PLATELET ESTIMATE DECREASED (NORMAL); TOTAL CELLS COUNTED 25
[2017-01-24 11:00] LABS: MEAN CELL VOLUME 81 fl (80.0-100.0)
[2017-01-24 11:01] LABS: MEAN PLATELET VOLUME 9.6 fl (7.4-10.4); PLATELET COUNT 7 K/mm3 (130-400)
[2017-01-25 15:09] VITALS: BP 139/82; PULSE 86; TEMP 97.3
[2017-01-25 15:15] VITALS: BP 139/82; PULSE 82; TEMP 97.9
[2017-01-25 15:26] LABS: INR 1.2 (0.8-3.0); PROTHROMBIN TIME 13.2 SECONDS (9.7-12.8)
[2017-01-25 15:28] VITALS: BP 132/76; PULSE 83; TEMP 97.9
[2017-01-25 15:45] VITALS: BP 136/78; PULSE 82; TEMP 99.3
[2017-01-25 16:00] VITALS: BP 132/78; PULSE 79; TEMP 99
[2017-01-25 16:18] VITALS: BP 159/80; PULSE 89; TEMP 97.9
[2017-01-28 08:15] VITALS: BP 123/65; PULSE 97; TEMP 97.3
[2017-01-28 08:19] LABS: ADD PATHOLOGY DIFF REVIEW NO
[2017-01-28 08:32] LABS: ADJUSTED CALCIUM 10.4 mg/dL (8.4-10.2); ALBUMIN 3.2 gm/dL (3.5-5.0); CALCIUM 9.8 mg/dL (8.4-10.2); CREATININE, serum 1.19 mg/dL (0.66-1.25); POTASSIUM 3.9 mmol/L (3.4-5.0); TOTAL PROTEIN 5.8 gm/dL (6.4-8.2)
[2017-01-28 08:43] LABS: MEAN CELL VOLUME 83 fl (80.0-100.0); MEAN CORPUSCULAR HGB CONC 34 g/dl (33.0-37.0); MEAN PLATELET VOLUME 10.3 fl (7.4-10.4); RED BLOOD COUNT 2.42 M/mm3 (4.20-5.60); REDCELL DISTRIBUTION WIDTH-CV 13.2 % (11.5-14.5)
[2017-01-28 08:51] LABS: HEMOGLOBIN 6.7 g/dl (13.5-18.0); MEAN CORPUSCULAR HEMOGLOBIN 28 pg (27.0-31.0); PLATELET COUNT 9 K/mm3 (130-400); WHITE BLOOD COUNT 0.5 K/mm3 (4.8-10.8)
[2017-01-28 09:40] LABS: BAND 6 % (0-10); NEUTROPHILS 46 % (42.0-75.2); PLATELET ESTIMATE DECREASED (NORMAL); TOTAL CELLS COUNTED 50
[2017-01-29] VITALS (8 sets, daily range): BP systolic 104–113; BP diastolic 60–72; PULSE 61–74; TEMP 98–100.4
[2017-01-31 08:12] LABS: ADD PATHOLOGY DIFF REVIEW NO
[2017-01-31 08:14] LABS: MEAN CELL VOLUME 83 fl (80.0-100.0); MEAN CORPUSCULAR HGB CONC 34 g/dl (33.0-37.0); MEAN PLATELET VOLUME 9.4 fl (7.4-10.4); RED BLOOD COUNT 2.63 M/mm3 (4.20-5.60); REDCELL DISTRIBUTION WIDTH-CV 13.2 % (11.5-14.5)
[2017-01-31 08:18] VITALS: BP 98/62; PULSE 81; TEMP 97.5
[2017-01-31 08:26] LABS: ADJUSTED CALCIUM 10.5 mg/dL (8.4-10.2); ALBUMIN 3.3 gm/dL (3.5-5.0); BILIRUBIN,TOTAL 1.1 mg/dL (0.0-1.0); CALCIUM 9.9 mg/dL (8.4-10.2); CREATININE, serum 1.07 mg/dL (0.66-1.25); POTASSIUM 4.5 mmol/L (3.4-5.0); TOTAL PROTEIN 6.2 gm/dL (6.4-8.2)
[2017-01-31 08:41] LABS: HEMATOCRIT 21.9 % (42.0-52.0); HEMOGLOBIN 7.4 g/dl (13.5-18.0); MEAN CORPUSCULAR HEMOGLOBIN 28 pg (27.0-31.0); PLATELET COUNT 19 K/mm3 (130-400); WHITE BLOOD COUNT 0.3 K/mm3 (4.8-10.8)
[2017-01-31 09:39] LABS: BAND 8 % (0-10); NEUTROPHILS 36 % (42.0-75.2); TOTAL CELLS COUNTED 100
[2017-02-04 08:31] LABS: ADD PATHOLOGY DIFF REVIEW NO
[2017-02-04 08:47] LABS: MEAN CELL VOLUME 83 fl (80.0-100.0); MEAN CORPUSCULAR HGB CONC 34 g/dl (33.0-37.0); MEAN PLATELET VOLUME 11.6 fl (7.4-10.4); RED BLOOD COUNT 2.23 M/mm3 (4.20-5.60); REDCELL DISTRIBUTION WIDTH-CV 12.7 % (11.5-14.5)
[2017-02-04 08:52] LABS: HEMATOCRIT 18.5 % (42.0-52.0); HEMOGLOBIN 6.2 g/dl (13.5-18.0); MEAN CORPUSCULAR HEMOGLOBIN 28 pg (27.0-31.0); PLATELET COUNT 4 K/mm3 (130-400); WHITE BLOOD COUNT 0.3 K/mm3 (4.8-10.8)
[2017-02-04 08:55] LABS: BILIRUBIN,TOTAL 1.2 mg/dL (0.0-1.0); CALCIUM 9.6 mg/dL (8.4-10.2); CREATININE, serum 1.27 mg/dL (0.66-1.25); POTASSIUM 4.4 mmol/L (3.4-5.0)
[2017-02-04 09:22] LABS: ADJUSTED CALCIUM 10.2 mg/dL (8.4-10.2); ALBUMIN 3.2 gm/dL (3.5-5.0)
[2017-02-04 10:15] LABS: BAND 20 % (0-10); NEUTROPHILS 20 % (42.0-75.2); TOTAL CELLS COUNTED 100
[2017-02-04 14:30] VITALS: BP 109/66; PULSE 89; TEMP 97
[2017-02-04 14:45] VITALS: BP 119/69; PULSE 84; TEMP 98.3
[2017-02-04 15:00] VITALS: BP 112/68; PULSE 85; TEMP 97.9
[2017-02-04 15:30] VITALS: BP 114/68; PULSE 76; TEMP 97.9
[2017-02-04 16:07] VITALS: BP 123/69; PULSE 76; TEMP 97.5
[2017-02-05 14:46] VITALS: BP 111/60; PULSE 85; TEMP 98.5
[2017-02-05 15:05] VITALS: BP 101/48; PULSE 77; TEMP 98.5
[2017-02-05 15:25] VITALS: BP 106/52; PULSE 81; TEMP 98.3
[2017-02-07 08:27] LABS: ADD PATHOLOGY DIFF REVIEW NO
[2017-02-07 08:30] VITALS: BP 83/54; PULSE 80; TEMP 97.9
[2017-02-07 08:42] LABS: MEAN CELL VOLUME 83 fl (80.0-100.0); MEAN CORPUSCULAR HGB CONC 34 g/dl (33.0-37.0); MEAN PLATELET VOLUME 9.8 fl (7.4-10.4); RED BLOOD COUNT 2.28 M/mm3 (4.20-5.60); REDCELL DISTRIBUTION WIDTH-CV 13.1 % (11.5-14.5)
[2017-02-07 08:43] LABS: ADJUSTED CALCIUM 10.7 mg/dL (8.4-10.2); BILIRUBIN,TOTAL 1.2 mg/dL (0.0-1.0); CALCIUM 9.9 mg/dL (8.4-10.2); CREATININE, serum 1.35 mg/dL (0.66-1.25); POTASSIUM 4.3 mmol/L (3.4-5.0); TOTAL PROTEIN 5.9 gm/dL (6.4-8.2)
[2017-02-07 09:06] LABS: HEMOGLOBIN 6.4 g/dl (13.5-18.0); MEAN CORPUSCULAR HEMOGLOBIN 28 pg (27.0-31.0); PLATELET COUNT 15 K/mm3 (130-400); WHITE BLOOD COUNT 0.6 K/mm3 (4.8-10.8)
[2017-02-07 11:56] LABS: ANISOCYTOSIS 1+; BAND 26 % (0-10); METAMYELOCYTE 2 % (0-0); NEUTROPHILS 40 % (42.0-75.2); TOTAL CELLS COUNTED 100
[2017-02-07 11:57] LABS: HYPOCHROMIA 1+
[2017-02-07 14:26] VITALS: BP 114/68; PULSE 80; TEMP 98.9
[2017-02-07 14:45] VITALS: BP 110/57; PULSE 85; TEMP 99.7
[2017-02-07 15:00] VITALS: BP 117/57; PULSE 78; TEMP 99.9
[2017-02-07 15:30] VITALS: BP 111/58; PULSE 76; TEMP 99.1
[2017-02-07 16:24] VITALS: BP 107/58; PULSE 66; TEMP 99
[2017-02-11] VITALS (12 sets, daily range): BP systolic 92–127; BP diastolic 51–72; PULSE 55–75; TEMP 97.8–98.6
[2017-02-11 08:27] LABS: ADD PATHOLOGY DIFF REVIEW NO
[2017-02-11 08:31] LABS: MEAN CELL VOLUME 83 fl (80.0-100.0); MEAN CORPUSCULAR HGB CONC 34 g/dl (33.0-37.0); MEAN PLATELET VOLUME 9.5 fl (7.4-10.4); RED BLOOD COUNT 2.11 M/mm3 (4.20-5.60)
[2017-02-11 08:40] LABS: ADJUSTED CALCIUM 10.5 mg/dL (8.4-10.2); BILIRUBIN,TOTAL 1.1 mg/dL (0.0-1.0); CALCIUM 9.7 mg/dL (8.4-10.2); CREATININE, serum 1.25 mg/dL (0.66-1.25); POTASSIUM 4.2 mmol/L (3.4-5.0); TOTAL PROTEIN 5.6 gm/dL (6.4-8.2)
[2017-02-11 09:12] LABS: HEMATOCRIT 17.5 % (42.0-52.0); MEAN CORPUSCULAR HEMOGLOBIN 28 pg (27.0-31.0); PLATELET COUNT 7 K/mm3 (130-400); WHITE BLOOD COUNT 0.7 K/mm3 (4.8-10.8)
[2017-02-11 10:14] LABS: BAND 24 % (0-10); METAMYELOCYTE 2 % (0-0); NEUTROPHILS 51 % (42.0-75.2); TOTAL CELLS COUNTED 101
[2017-02-11 10:15] LABS: ANISOCYTOSIS 1+; HYPOCHROMIA 2+; MICROCYTOSIS 1+; PLATELET ESTIMATE DECREASED (NORMAL)
[2017-02-12 10:00] VITALS: BP 139/74; PULSE 64; TEMP 97.7
[2017-02-14 08:19] LABS: ADD PATHOLOGY DIFF REVIEW NO
[2017-02-14 08:26] VITALS: BP 96/57; PULSE 74; TEMP 98.2
[2017-02-14 08:40] LABS: ADJUSTED CALCIUM 10.3 mg/dL (8.4-10.2); ALBUMIN 2.9 gm/dL (3.5-5.0); CALCIUM 9.4 mg/dL (8.4-10.2); CREATININE, serum 1.1 mg/dL (0.66-1.25); POTASSIUM 4.2 mmol/L (3.4-5.0); TOTAL PROTEIN 5.5 gm/dL (6.4-8.2)
[2017-02-14 08:41] LABS: MEAN CELL VOLUME 84 fl (80.0-100.0); MEAN CORPUSCULAR HGB CONC 34 g/dl (33.0-37.0); MEAN PLATELET VOLUME 9.9 fl (7.4-10.4); RED BLOOD COUNT 2.78 M/mm3 (4.20-5.60)
[2017-02-14 08:58] LABS: HEMATOCRIT 23.2 % (42.0-52.0); HEMOGLOBIN 7.8 g/dl (13.5-18.0); MEAN CORPUSCULAR HEMOGLOBIN 28 pg (27.0-31.0); PLATELET COUNT 13 K/mm3 (130-400); WHITE BLOOD COUNT 0.5 K/mm3 (4.8-10.8)
[2017-02-14 09:35] LABS: BAND 18 % (0-10); NEUTROPHILS 50 % (42.0-75.2); TOTAL CELLS COUNTED 100
[2017-02-14 09:36] LABS: HYPOCHROMIA 1+; PLATELET ESTIMATE DECREASED (NORMAL)
[~2017-02-18] VITALS: Ht 182.9 cm; Wt 98.6 kg
[~2017-02-18 08:00] MED LIST changes: +JADENU90 MG PO
[2017-02-18 08:31] LABS: ADD PATHOLOGY DIFF REVIEW NO
[2017-02-18 08:39] LABS: MEAN CELL VOLUME 83 fl (80.0-100.0); MEAN CORPUSCULAR HGB CONC 34 g/dl (33.0-37.0); MEAN PLATELET VOLUME 11.2 fl (7.4-10.4); RED BLOOD COUNT 2.45 M/mm3 (4.20-5.60); REDCELL DISTRIBUTION WIDTH-CV 12.9 % (11.5-14.5)
[2017-02-18 08:45] LABS: ADJUSTED CALCIUM 10.5 mg/dL (8.4-10.2); CALCIUM 9.7 mg/dL (8.4-10.2); POTASSIUM 4.2 mmol/L (3.4-5.0); TOTAL PROTEIN 5.3 gm/dL (6.4-8.2)
[2017-02-18 08:47] LABS: HEMATOCRIT 20.4 % (42.0-52.0); HEMOGLOBIN 6.9 g/dl (13.5-18.0); MEAN CORPUSCULAR HEMOGLOBIN 28 pg (27.0-31.0); WHITE BLOOD COUNT 0.3 K/mm3 (4.8-10.8)
[2017-02-18 08:48] LABS: PLATELET COUNT 14 K/mm3 (130-400)
[2017-02-18 08:54] LABS: CREATININE, serum 1.21 mg/dL (0.66-1.25)
[2017-02-18 10:56] VITALS: BP 114/60; PULSE 69; TEMP 97.8
[2017-02-18 11:11] LABS: BAND 18 % (0-10); NEUTROPHILS 22 % (42.0-75.2); TOTAL CELLS COUNTED 100
[2017-02-18 11:12] LABS: ANISOCYTOSIS 1+; HYPOCHROMIA 1+; MICROCYTOSIS 1+; PLATELET ESTIMATE DECREASED (NORMAL)
[2017-02-18 12:16] VITALS: BP 110/49; PULSE 67; TEMP 98
[2017-02-18 12:31] VITALS: BP 107/48; PULSE 68; TEMP 98.3
[2017-02-18 13:01] VITALS: BP 109/48; PULSE 55; TEMP 98.2
[2017-02-18 14:09] VITALS: BP 110/67; PULSE 56; TEMP 98.7
[2017-04-01] MEDS ORDERED: PRILOSEC 20MG20 MG PO (09:53)
[2017-04-01] MEDS ORDERED: DECADRON 4MG TAB4 MG PO (09:54)
== END 2017-02-20 | disposition home or self-care (01) ==
LOC: EUO
PROVIDERS: Internal Medicine; Ophthalmology
DX: D46.21 Refractory anemia with excess of blasts 1 (principal); D61.01 Constitutional (pure) red blood cell aplasia; Z94.81 Bone marrow transplant status; Z45.2 Encounter for adjustment and management of vascular access device
CPT/HCPCS: C1751; J1644; J7050; P9037; P9040

== ENCOUNTER 2017-05-17 13:00 | Outpatient (RCR) | payer MEDICARE, BC ==
[2017-02-21 08:31] LABS: ADD PATHOLOGY DIFF REVIEW NO
[2017-02-21 08:37] LABS: MEAN CELL VOLUME 84 fl (80.0-100.0); MEAN CORPUSCULAR HGB CONC 33 g/dl (33.0-37.0); MEAN PLATELET VOLUME 10.1 fl (7.4-10.4); RED BLOOD COUNT 2.92 M/mm3 (4.20-5.60); REDCELL DISTRIBUTION WIDTH-CV 13.1 % (11.5-14.5)
[2017-02-21 08:45] LABS: HEMATOCRIT 24.6 % (42.0-52.0); HEMOGLOBIN 8.2 g/dl (13.5-18.0); MEAN CORPUSCULAR HEMOGLOBIN 28 pg (27.0-31.0); PLATELET COUNT 17 K/mm3 (130-400); WHITE BLOOD COUNT 0.4 K/mm3 (4.8-10.8)
[2017-02-21 08:51] LABS: ADJUSTED CALCIUM 10.3 mg/dL (8.4-10.2); ALBUMIN 3.2 gm/dL (3.5-5.0); CALCIUM 9.7 mg/dL (8.4-10.2); CREATININE, serum 1.42 mg/dL (0.66-1.25); POTASSIUM 4.5 mmol/L (3.4-5.0); TOTAL PROTEIN 5.7 gm/dL (6.4-8.2)
[2017-02-21 09:28] VITALS: BP 125/66; PULSE 65; TEMP 97.6
[2017-02-21 13:26] LABS: NEUTROPHILS 45 % (42.0-75.2); TOTAL CELLS COUNTED 100
[2017-02-21 13:28] LABS: ANISOCYTOSIS 1+; HYPOCHROMIA 2+; MICROCYTOSIS 1+
[2017-02-25 08:14] VITALS: BP 118/71; PULSE 77; TEMP 98.1
[2017-02-25 08:32] LABS: MEAN CELL VOLUME 86 fl (80.0-100.0); MEAN CORPUSCULAR HGB CONC 33 g/dl (33.0-37.0); MEAN PLATELET VOLUME 11.2 fl (7.4-10.4); RED BLOOD COUNT 2.49 M/mm3 (4.20-5.60); REDCELL DISTRIBUTION WIDTH-CV 13.2 % (11.5-14.5)
[2017-02-25 08:34] LABS: HEMATOCRIT 21.4 % (42.0-52.0); MEAN CORPUSCULAR HEMOGLOBIN 28 pg (27.0-31.0); PLATELET COUNT 20 K/mm3 (130-400); WHITE BLOOD COUNT 0.4 K/mm3 (4.8-10.8)
[2017-02-25 08:36] LABS: ADJUSTED CALCIUM 10.2 mg/dL (8.4-10.2); ALBUMIN 3.1 gm/dL (3.5-5.0); BILIRUBIN,TOTAL 1.2 mg/dL (0.0-1.0); CALCIUM 9.5 mg/dL (8.4-10.2); CREATININE, serum 1.19 mg/dL (0.66-1.25); TOTAL PROTEIN 5.3 gm/dL (6.4-8.2)
[2017-02-25 10:45] LABS: BAND 8 % (0-10); NEUTROPHILS 44 % (42.0-75.2); TOTAL CELLS COUNTED 100
[2017-02-25 10:46] LABS: PLATELET ESTIMATE DECREASED (NORMAL)
[2017-02-25 10:48] LABS: ADD PATHOLOGY DIFF REVIEW YES; ANISOCYTOSIS 1+; POLYCHROMASIA 1+
[2017-02-25 13:30] VITALS: BP 115/63; PULSE 76; TEMP 98.2
[2017-02-25 13:33] VITALS: BP 115/63; PULSE 76; TEMP 98.2
[2017-02-25 13:45] VITALS: BP 116/66; PULSE 77; TEMP 98.2
[2017-02-25 14:15] VITALS: BP 100/79; PULSE 73; TEMP 97.9
[2017-02-25 15:11] VITALS: BP 117/67; PULSE 58; TEMP 98.3
[2017-02-28 08:25] VITALS: BP 114/60; PULSE 70; TEMP 97.8
[2017-02-28 08:27] LABS: ADD PATHOLOGY DIFF REVIEW NO
[2017-02-28 08:30] LABS: MEAN CELL VOLUME 84 fl (80.0-100.0); MEAN CORPUSCULAR HGB CONC 33 g/dl (33.0-37.0); MEAN PLATELET VOLUME 10.9 fl (7.4-10.4); RED BLOOD COUNT 2.54 M/mm3 (4.20-5.60); REDCELL DISTRIBUTION WIDTH-CV 14.2 % (11.5-14.5)
[2017-02-28 08:42] LABS: ADJUSTED CALCIUM 10.2 mg/dL (8.4-10.2); BILIRUBIN,TOTAL 1.3 mg/dL (0.0-1.0); CALCIUM 9.4 mg/dL (8.4-10.2); CREATININE, serum 1.31 mg/dL (0.66-1.25); POTASSIUM 4.3 mmol/L (3.4-5.0); TOTAL PROTEIN 5.4 gm/dL (6.4-8.2)
[2017-02-28 08:44] LABS: HEMATOCRIT 21.3 % (42.0-52.0); HEMOGLOBIN 7.1 g/dl (13.5-18.0); MEAN CORPUSCULAR HEMOGLOBIN 28 pg (27.0-31.0); WHITE BLOOD COUNT 0.4 K/mm3 (4.8-10.8)
[2017-02-28 08:45] LABS: PLATELET COUNT 19 K/mm3 (130-400)
[2017-02-28 08:55] LABS: ANISOCYTOSIS 1+
[2017-02-28 10:01] LABS: NEUTROPHILS 20 % (42.0-75.2)
[2017-02-28 10:02] LABS: BAND 30 % (0-10); EOSINOPHIL 4 % (0-4); TOTAL CELLS COUNTED 100
[2017-02-28 10:03] LABS: HYPOCHROMIA 1+; MICROCYTOSIS 1+; PLATELET ESTIMATE DECREASED (NORMAL)
[2017-03-01] VITALS (8 sets, daily range): BP systolic 124–163; BP diastolic 57–97; PULSE 59–70; TEMP 97–98.1
[2017-03-04 08:25] LABS: ADD PATHOLOGY DIFF REVIEW NO
[2017-03-04 08:32] LABS: MEAN CELL VOLUME 85 fl (80.0-100.0); MEAN CORPUSCULAR HGB CONC 34 g/dl (33.0-37.0); MEAN PLATELET VOLUME 10.5 fl (7.4-10.4); RED BLOOD COUNT 2.97 M/mm3 (4.20-5.60); REDCELL DISTRIBUTION WIDTH-CV 14.2 % (11.5-14.5)
[2017-03-04 08:44] LABS: HEMATOCRIT 25.1 % (42.0-52.0); HEMOGLOBIN 8.4 g/dl (13.5-18.0); MEAN CORPUSCULAR HEMOGLOBIN 28 pg (27.0-31.0); WHITE BLOOD COUNT 0.5 K/mm3 (4.8-10.8)
[2017-03-04 08:45] LABS: ADJUSTED CALCIUM 10.3 mg/dL (8.4-10.2); ALBUMIN 3.1 gm/dL (3.5-5.0); BILIRUBIN,TOTAL 1.3 mg/dL (0.0-1.0); CALCIUM 9.6 mg/dL (8.4-10.2); CREATININE, serum 1.28 mg/dL (0.66-1.25); PLATELET COUNT 15 K/mm3 (130-400); TOTAL PROTEIN 5.5 gm/dL (6.4-8.2)
[2017-03-04 09:40] VITALS: BP 116/63; PULSE 76; TEMP 98.1
[2017-03-04 10:15] LABS: BAND 30 % (0-10); EOSINOPHIL 7 % (0-4); NEUTROPHILS 11 % (42.0-75.2); TOTAL CELLS COUNTED 99
[2017-03-04 10:16] LABS: ANISOCYTOSIS 1+; HYPOCHROMIA 1+; POLYCHROMASIA 1+
[2017-03-07 08:15] LABS: ADD PATHOLOGY DIFF REVIEW NO
[2017-03-07 08:21] VITALS: BP 127/71; PULSE 72; TEMP 97.4
[2017-03-07 08:37] LABS: MEAN CELL VOLUME 86 fl (80.0-100.0); MEAN CORPUSCULAR HGB CONC 32 g/dl (33.0-37.0); MEAN PLATELET VOLUME 10.8 fl (7.4-10.4); RED BLOOD COUNT 2.88 M/mm3 (4.20-5.60)
[2017-03-07 08:47] LABS: ADJUSTED CALCIUM 10.5 mg/dL (8.4-10.2); ALBUMIN 3.2 gm/dL (3.5-5.0); BILIRUBIN,TOTAL 1.3 mg/dL (0.0-1.0); CALCIUM 9.9 mg/dL (8.4-10.2); CREATININE, serum 1.25 mg/dL (0.66-1.25); POTASSIUM 4.2 mmol/L (3.4-5.0); TOTAL PROTEIN 5.6 gm/dL (6.4-8.2)
[2017-03-07 09:17] LABS: HEMATOCRIT 24.8 % (42.0-52.0); MEAN CORPUSCULAR HEMOGLOBIN 28 pg (27.0-31.0); PLATELET COUNT 21 K/mm3 (130-400); WHITE BLOOD COUNT 0.5 K/mm3 (4.8-10.8)
[2017-03-07 14:23] LABS: BAND 32 % (0-10); NEUTROPHILS 21 % (42.0-75.2)
[2017-03-07 14:24] LABS: ANISOCYTOSIS 2+; HYPOCHROMIA 1+; MICROCYTOSIS 1+
[2017-03-07 14:25] LABS: EOSINOPHIL 2 % (0-4); TOTAL CELLS COUNTED 100
[2017-03-11 08:50] LABS: ADJUSTED CALCIUM 10.4 mg/dL (8.4-10.2); ALBUMIN 2.9 gm/dL (3.5-5.0); BILIRUBIN,TOTAL 1.1 mg/dL (0.0-1.0); CALCIUM 9.5 mg/dL (8.4-10.2); CREATININE, serum 1.3 mg/dL (0.66-1.25); TOTAL PROTEIN 5.5 gm/dL (6.4-8.2)
[2017-03-11 08:55] VITALS: BP 105/60; PULSE 73; TEMP 97.7
[2017-03-11 08:56] LABS: MEAN CELL VOLUME 86 fl (80.0-100.0); MEAN CORPUSCULAR HGB CONC 33 g/dl (33.0-37.0); MEAN PLATELET VOLUME 12.1 fl (7.4-10.4); RED BLOOD COUNT 2.56 M/mm3 (4.20-5.60); REDCELL DISTRIBUTION WIDTH-CV 14.9 % (11.5-14.5)
[2017-03-11 09:36] LABS: HEMATOCRIT 22.1 % (42.0-52.0); HEMOGLOBIN 7.2 g/dl (13.5-18.0); MEAN CORPUSCULAR HEMOGLOBIN 28 pg (27.0-31.0); PLATELET COUNT 21 K/mm3 (130-400)
[2017-03-11 10:27] LABS: BAND 15 % (0-10); EOSINOPHIL 1 % (0-4); METAMYELOCYTE 3 % (0-0); MYELOCYTE 1 % (0-0); NEUTROPHILS 51 % (42.0-75.2)
[2017-03-11 10:28] LABS: ANISOCYTOSIS 1+
[2017-03-11 10:29] LABS: HYPOCHROMIA 1+; MICROCYTOSIS 1+; POLYCHROMASIA 1+
[2017-03-11 10:30] LABS: ADD PATHOLOGY DIFF REVIEW YES
[2017-03-11 10:32] LABS: PLATELET ESTIMATE DECREASED (NORMAL); TOTAL CELLS COUNTED 100
[2017-03-12 08:12] LABS: PATHOLOGY DIFF REVIEW OK +
[2017-03-14 08:10] VITALS: BP 92/54; PULSE 84; TEMP 98.2
[2017-03-14 08:20] LABS: ADD PATHOLOGY DIFF REVIEW NO
[2017-03-14 08:40] LABS: MEAN CELL VOLUME 86 fl (80.0-100.0); MEAN CORPUSCULAR HGB CONC 33 g/dl (33.0-37.0); MEAN PLATELET VOLUME 11.6 fl (7.4-10.4); RED BLOOD COUNT 2.42 M/mm3 (4.20-5.60); REDCELL DISTRIBUTION WIDTH-CV 15.2 % (11.5-14.5)
[2017-03-14 08:49] LABS: ADJUSTED CALCIUM 10.3 mg/dL (8.4-10.2); BILIRUBIN,TOTAL 1.1 mg/dL (0.0-1.0); CALCIUM 9.5 mg/dL (8.4-10.2); CREATININE, serum 1.39 mg/dL (0.66-1.25); POTASSIUM 3.8 mmol/L (3.4-5.0); TOTAL PROTEIN 5.1 gm/dL (6.4-8.2)
[2017-03-14 08:55] LABS: WHITE BLOOD COUNT 1.1 K/mm3 (4.8-10.8)
[2017-03-14 08:57] LABS: HEMATOCRIT 20.8 % (42.0-52.0); HEMOGLOBIN 6.9 g/dl (13.5-18.0); MEAN CORPUSCULAR HEMOGLOBIN 29 pg (27.0-31.0)
[2017-03-14 08:58] LABS: PLATELET COUNT 28 K/mm3 (130-400)
[2017-03-14 10:54] LABS: ANISOCYTOSIS 1+; BAND 2 % (0-10); NEUTROPHILS 62 % (42.0-75.2); PLATELET ESTIMATE DECREASED (NORMAL); TOTAL CELLS COUNTED 100
[2017-03-14 10:55] LABS: HYPOCHROMIA 1+; OVALOCYTES 1+
[2017-03-14 12:01] VITALS: BP 102/61; PULSE 59; TEMP 98
[2017-03-14 12:21] VITALS: BP 109/65; PULSE 58; TEMP 98.3
[2017-03-14 12:36] VITALS: BP 103/64; PULSE 59; TEMP 97.8
[2017-03-14 13:06] VITALS: BP 109/62; PULSE 52; TEMP 97.9
[2017-03-14 14:13] VITALS: BP 122/74; PULSE 54; TEMP 98.3
[2017-03-15 13:09] VITALS: BP 122/71; PULSE 65; TEMP 98.8
[2017-03-15 13:30] VITALS: BP 112/67; PULSE 58; TEMP 99.3
[2017-03-15 13:45] VITALS: BP 118/68; PULSE 57; TEMP 99.5
[2017-03-15 14:15] VITALS: BP 116/69; PULSE 57; TEMP 97.5
[2017-03-15 15:15] VITALS: BP 122/65; PULSE 54; TEMP 98.8
[2017-03-18 08:25] VITALS: BP 95/58; PULSE 81; TEMP 98.4
[2017-03-18 08:32] LABS: ADD PATHOLOGY DIFF REVIEW NO
[2017-03-18 08:43] LABS: HEMATOCRIT 26.4 % (42.0-52.0); HEMOGLOBIN 8.8 g/dl (13.5-18.0); MEAN CELL VOLUME 86 fl (80.0-100.0); MEAN CORPUSCULAR HEMOGLOBIN 29 pg (27.0-31.0); MEAN CORPUSCULAR HGB CONC 33 g/dl (33.0-37.0); MEAN PLATELET VOLUME 11.7 fl (7.4-10.4); RED BLOOD COUNT 3.06 M/mm3 (4.20-5.60); REDCELL DISTRIBUTION WIDTH-CV 15.4 % (11.5-14.5)
[2017-03-18 08:44] LABS: PLATELET COUNT 21 K/mm3 (130-400)
[2017-03-18 08:54] LABS: ADJUSTED CALCIUM 9.7 mg/dL (8.4-10.2); ALBUMIN 3.2 gm/dL (3.5-5.0); BILIRUBIN,TOTAL 1.3 mg/dL (0.0-1.0); CALCIUM 9.1 mg/dL (8.4-10.2); CREATININE, serum 1.3 mg/dL (0.66-1.25); POTASSIUM 4.2 mmol/L (3.4-5.0); TOTAL PROTEIN 5.8 gm/dL (6.4-8.2)
[2017-03-18 09:15] LABS: BAND 4 % (0-10); NEUTROPHILS 55 % (42.0-75.2); PLATELET ESTIMATE DECREASED (NORMAL); TOTAL CELLS COUNTED 100
[2017-03-18 09:16] LABS: ANISOCYTOSIS 1+; HYPOCHROMIA 1+
[2017-03-21 08:15] VITALS: BP 96/60; PULSE 82; TEMP 98
[2017-03-21 08:38] LABS: ADD PATHOLOGY DIFF REVIEW NO
[2017-03-21 08:46] LABS: MEAN CELL VOLUME 86 fl (80.0-100.0); MEAN CORPUSCULAR HGB CONC 33 g/dl (33.0-37.0); MEAN PLATELET VOLUME 10.9 fl (7.4-10.4); RED BLOOD COUNT 2.86 M/mm3 (4.20-5.60); REDCELL DISTRIBUTION WIDTH-CV 15.3 % (11.5-14.5)
[2017-03-21 08:49] LABS: HEMATOCRIT 24.5 % (42.0-52.0); HEMOGLOBIN 8.1 g/dl (13.5-18.0); MEAN CORPUSCULAR HEMOGLOBIN 28 pg (27.0-31.0); PLATELET COUNT 22 K/mm3 (130-400); WHITE BLOOD COUNT 0.7 K/mm3 (4.8-10.8)
[2017-03-21 09:43] LABS: ANISOCYTOSIS 1+; BAND 15 % (0-10); EOSINOPHIL 1 % (0-4); NEUTROPHILS 55 % (42.0-75.2); PLATELET ESTIMATE DECREASED (NORMAL); TOTAL CELLS COUNTED 100
[2017-03-21 09:44] LABS: OVALOCYTES 1+
[2017-03-21 10:01] LABS: BILIRUBIN,TOTAL 1.3 mg/dL (0.0-1.0); CALCIUM 9.2 mg/dL (8.4-10.2); CREATININE, serum 1.33 mg/dL (0.66-1.25); POTASSIUM 3.9 mmol/L (3.4-5.0); TOTAL PROTEIN 5.6 gm/dL (6.4-8.2)
[2017-03-25 08:24] VITALS: BP 111/63; PULSE 85
[2017-03-25 08:31] LABS: ADD PATHOLOGY DIFF REVIEW NO
[2017-03-25 08:39] LABS: MEAN CELL VOLUME 86 fl (80.0-100.0); MEAN CORPUSCULAR HGB CONC 33 g/dl (33.0-37.0); MEAN PLATELET VOLUME 11.9 fl (7.4-10.4); RED BLOOD COUNT 2.78 M/mm3 (4.20-5.60); REDCELL DISTRIBUTION WIDTH-CV 15.5 % (11.5-14.5)
[2017-03-25 08:47] LABS: HEMATOCRIT 23.9 % (42.0-52.0); HEMOGLOBIN 7.9 g/dl (13.5-18.0); MEAN CORPUSCULAR HEMOGLOBIN 28 pg (27.0-31.0); PLATELET COUNT 31 K/mm3 (130-400); WHITE BLOOD COUNT 0.8 K/mm3 (4.8-10.8)
[2017-03-25 08:49] LABS: ADJUSTED CALCIUM 9.9 mg/dL (8.4-10.2); ALBUMIN 3.3 gm/dL (3.5-5.0); BILIRUBIN,TOTAL 1.5 mg/dL (0.0-1.0); CALCIUM 9.3 mg/dL (8.4-10.2); CREATININE, serum 1.32 mg/dL (0.66-1.25); POTASSIUM 3.7 mmol/L (3.4-5.0); TOTAL PROTEIN 5.8 gm/dL (6.4-8.2)
[2017-03-25 09:31] LABS: ANISOCYTOSIS 1+; BAND 16 % (0-10); HYPOCHROMIA 1+; NEUTROPHILS 45 % (42.0-75.2); PLATELET ESTIMATE DECREASED (NORMAL); TOTAL CELLS COUNTED 100
[2017-03-28 08:32] LABS: ADD PATHOLOGY DIFF REVIEW NO
[2017-03-28 08:36] LABS: MEAN CELL VOLUME 86 fl (80.0-100.0); MEAN CORPUSCULAR HGB CONC 34 g/dl (33.0-37.0); MEAN PLATELET VOLUME 11.6 fl (7.4-10.4); RED BLOOD COUNT 2.47 M/mm3 (4.20-5.60); REDCELL DISTRIBUTION WIDTH-CV 15.9 % (11.5-14.5)
[2017-03-28 08:44] LABS: HEMATOCRIT 21.2 % (42.0-52.0); HEMOGLOBIN 7.1 g/dl (13.5-18.0); MEAN CORPUSCULAR HEMOGLOBIN 29 pg (27.0-31.0); PLATELET COUNT 31 K/mm3 (130-400); WHITE BLOOD COUNT 0.5 K/mm3 (4.8-10.8)
[2017-03-28 09:37] LABS: ALBUMIN 3.4 gm/dL (3.5-5.0); BILIRUBIN,TOTAL 1.4 mg/dL (0.0-1.0); CALCIUM 9.5 mg/dL (8.4-10.2); CREATININE, serum 1.21 mg/dL (0.66-1.25); POTASSIUM 3.8 mmol/L (3.4-5.0); TOTAL PROTEIN 5.8 gm/dL (6.4-8.2)
[2017-03-28 10:36] LABS: BAND 16 % (0-10); EOSINOPHIL 2 % (0-4); NEUTROPHILS 44 % (42.0-75.2); PLATELET ESTIMATE DECREASED (NORMAL)
[2017-03-28 10:37] LABS: TOTAL CELLS COUNTED 50
[2017-03-28 10:38] LABS: MICROCYTOSIS 1+
[2017-03-28 11:23] VITALS: BP 115/70; PULSE 80; TEMP 97.9
[2017-03-29] VITALS (12 sets, daily range): BP systolic 126–166; BP diastolic 83–91; PULSE 59–78; TEMP 97.1–98
[2017-04-01 09:54] VITALS: BP 118/67; PULSE 66; TEMP 97.8
[2017-04-01 10:16] LABS: ADD PATHOLOGY DIFF REVIEW NO
[2017-04-01 10:23] LABS: MEAN CELL VOLUME 88 fl (80.0-100.0); MEAN CORPUSCULAR HGB CONC 33 g/dl (33.0-37.0); MEAN PLATELET VOLUME 10.7 fl (7.4-10.4); RED BLOOD COUNT 2.85 M/mm3 (4.20-5.60); REDCELL DISTRIBUTION WIDTH-CV 17.4 % (11.5-14.5)
[2017-04-01 10:26] LABS: HEMATOCRIT 25.2 % (42.0-52.0); HEMOGLOBIN 8.3 g/dl (13.5-18.0); MEAN CORPUSCULAR HEMOGLOBIN 29 pg (27.0-31.0)
[2017-04-01 10:28] LABS: PLATELET COUNT 22 K/mm3 (130-400)
[2017-04-01 10:34] LABS: ADJUSTED CALCIUM 9.8 mg/dL (8.4-10.2); BILIRUBIN,TOTAL 1.1 mg/dL (0.0-1.0); CREATININE, serum 1.04 mg/dL (0.66-1.25); POTASSIUM 3.7 mmol/L (3.4-5.0); TOTAL PROTEIN 5.3 gm/dL (6.4-8.2)
[2017-04-01 11:24] LABS: ANISOCYTOSIS 3+; BAND 41 % (0-10); HYPOCHROMIA 1+; NEUTROPHILS 43 % (42.0-75.2); TOTAL CELLS COUNTED 100
[2017-04-01 11:25] LABS: MICROCYTOSIS 1+; PLATELET ESTIMATE DECREASED (NORMAL)
[2017-04-04 09:45] VITALS: BP 111/62; PULSE 81; TEMP 98
[2017-04-04 10:13] LABS: ADD PATHOLOGY DIFF REVIEW NO
[2017-04-04 10:17] LABS: MEAN CELL VOLUME 91 fl (80.0-100.0); MEAN CORPUSCULAR HGB CONC 32 g/dl (33.0-37.0); MEAN PLATELET VOLUME 12.6 fl (7.4-10.4); RED BLOOD COUNT 2.67 M/mm3 (4.20-5.60); REDCELL DISTRIBUTION WIDTH-CV 18.2 % (11.5-14.5)
[2017-04-04 10:30] LABS: HEMATOCRIT 24.3 % (42.0-52.0); HEMOGLOBIN 7.8 g/dl (13.5-18.0); MEAN CORPUSCULAR HEMOGLOBIN 29 pg (27.0-31.0); PLATELET COUNT 25 K/mm3 (130-400); WHITE BLOOD COUNT 0.9 K/mm3 (4.8-10.8)
[2017-04-04 10:50] LABS: CALCIUM 9.2 mg/dL (8.4-10.2); CREATININE, serum 0.96 mg/dL (0.66-1.25); POTASSIUM 3.9 mmol/L (3.4-5.0); TOTAL PROTEIN 5.4 gm/dL (6.4-8.2)
[2017-04-04 12:20] LABS: ANISOCYTOSIS 2+; BAND 34 % (0-10); MICROCYTOSIS 1+; NEUTROPHILS 42 % (42.0-75.2); TOTAL CELLS COUNTED 100
[2017-04-04 12:21] LABS: HYPOCHROMIA 1+; PLATELET ESTIMATE DECREASED (NORMAL)
[2017-04-05 14:59] VITALS: BP 120/73; PULSE 74; TEMP 97.9
[2017-04-05 15:17] VITALS: BP 115/75; PULSE 68; TEMP 98.7
[2017-04-05 15:32] VITALS: BP 115/75; PULSE 65; TEMP 97.3
[2017-04-05 16:02] VITALS: BP 113/68; PULSE 62; TEMP 97.5
[2017-04-05 16:50] VITALS: BP 129/83; PULSE 58; TEMP 97.9
[2017-04-09 09:33] LABS: ADD PATHOLOGY DIFF REVIEW NO
[2017-04-09 09:45] LABS: MEAN CELL VOLUME 92 fl (80.0-100.0); MEAN CORPUSCULAR HGB CONC 32 g/dl (33.0-37.0); MEAN PLATELET VOLUME 11.8 fl (7.4-10.4); RED BLOOD COUNT 3.04 M/mm3 (4.20-5.60); REDCELL DISTRIBUTION WIDTH-CV 18.9 % (11.5-14.5)
[2017-04-09 09:48] LABS: ADJUSTED CALCIUM 10.2 mg/dL (8.4-10.2); ALBUMIN 3.3 gm/dL (3.5-5.0); BILIRUBIN,TOTAL 1.1 mg/dL (0.0-1.0); CALCIUM 9.6 mg/dL (8.4-10.2); CREATININE, serum 0.96 mg/dL (0.66-1.25); POTASSIUM 4.2 mmol/L (3.4-5.0); TOTAL PROTEIN 5.6 gm/dL (6.4-8.2)
[2017-04-09 09:58] LABS: WHITE BLOOD COUNT 1.3 K/mm3 (4.8-10.8)
[2017-04-09 09:59] LABS: HEMATOCRIT 28.1 % (42.0-52.0); HEMOGLOBIN 9.1 g/dl (13.5-18.0); MEAN CORPUSCULAR HEMOGLOBIN 30 pg (27.0-31.0); PLATELET COUNT 31 K/mm3 (130-400)
[2017-04-09 10:40] VITALS: BP 117/66; PULSE 64; TEMP 98.4
[2017-04-09 11:22] LABS: BAND 24 % (0-10); METAMYELOCYTE 1 % (0-0); NEUTROPHILS 53 % (42.0-75.2); TOTAL CELLS COUNTED 100
[2017-04-09 11:23] LABS: ANISOCYTOSIS 2+; HYPOCHROMIA 1+; POLYCHROMASIA 1+
[2017-04-09 11:24] LABS: PLATELET ESTIMATE DECREASED (NORMAL)
[2017-04-11 09:44] VITALS: BP 114/72; PULSE 20; TEMP 98
[2017-04-11 10:07] LABS: MEAN CELL VOLUME 94 fl (80.0-100.0); MEAN CORPUSCULAR HGB CONC 32 g/dl (33.0-37.0); MEAN PLATELET VOLUME 11.2 fl (7.4-10.4); RED BLOOD COUNT 2.85 M/mm3 (4.20-5.60); REDCELL DISTRIBUTION WIDTH-CV 19.9 % (11.5-14.5)
[2017-04-11 10:21] LABS: HEMATOCRIT 26.9 % (42.0-52.0); HEMOGLOBIN 8.5 g/dl (13.5-18.0); MEAN CORPUSCULAR HEMOGLOBIN 30 pg (27.0-31.0); WHITE BLOOD COUNT 1.3 K/mm3 (4.8-10.8)
[2017-04-11 10:23] LABS: PLATELET COUNT 26 K/mm3 (130-400)
[2017-04-11 10:50] LABS: ADJUSTED CALCIUM 9.9 mg/dL (8.4-10.2); ALBUMIN 3.1 gm/dL (3.5-5.0); BILIRUBIN,TOTAL 1.5 mg/dL (0.0-1.0); CALCIUM 9.2 mg/dL (8.4-10.2); CREATININE, serum 0.97 mg/dL (0.66-1.25); POTASSIUM 4.2 mmol/L (3.4-5.0); TOTAL PROTEIN 5.3 gm/dL (6.4-8.2)
[2017-04-11 11:12] LABS: BAND 38 % (0-10); EOSINOPHIL 2 % (0-4); METAMYELOCYTE 10 % (0-0); MYELOCYTE 6 % (0-0); NEUTROPHILS 8 % (42.0-75.2)
[2017-04-11 11:14] LABS: PLATELET ESTIMATE DECREASED (NORMAL)
[2017-04-11 11:15] LABS: ADD PATHOLOGY DIFF REVIEW YES
[2017-04-11 11:16] LABS: HYPOCHROMIA 1+
[2017-04-11 11:19] LABS: TOTAL CELLS COUNTED 50
[2017-04-12 08:08] LABS: PATHOLOGY DIFF REVIEW OK
[2017-04-15 09:52] VITALS: BP 113/75; PULSE 65; TEMP 98.2
[2017-04-15 10:25] LABS: MEAN CELL VOLUME 95 fl (80.0-100.0); MEAN CORPUSCULAR HGB CONC 32 g/dl (33.0-37.0); MEAN PLATELET VOLUME 13.6 fl (7.4-10.4); RED BLOOD COUNT 2.71 M/mm3 (4.20-5.60); REDCELL DISTRIBUTION WIDTH-CV 22.1 % (11.5-14.5)
[2017-04-15 10:29] LABS: ADJUSTED CALCIUM 10.3 mg/dL (8.4-10.2); ALBUMIN 3.1 gm/dL (3.5-5.0); BILIRUBIN,TOTAL 1.3 mg/dL (0.0-1.0); CALCIUM 9.6 mg/dL (8.4-10.2); CREATININE, serum 1.05 mg/dL (0.66-1.25); POTASSIUM 4.8 mmol/L (3.4-5.0); TOTAL PROTEIN 5.4 gm/dL (6.4-8.2)
[2017-04-15 10:37] LABS: HEMATOCRIT 25.8 % (42.0-52.0); HEMOGLOBIN 8.2 g/dl (13.5-18.0); MEAN CORPUSCULAR HEMOGLOBIN 30 pg (27.0-31.0); PLATELET COUNT 21 K/mm3 (130-400); WHITE BLOOD COUNT 1.4 K/mm3 (4.8-10.8)
[2017-04-15 10:38] LABS: ADD PATHOLOGY DIFF REVIEW NO
[2017-04-15 14:05] LABS: ANISOCYTOSIS 3+; BAND 43 % (0-10); HYPOCHROMIA 1+; NEUTROPHILS 30 % (42.0-75.2); PLATELET ESTIMATE DECREASED (NORMAL); POLYCHROMASIA 1+; TOTAL CELLS COUNTED 100
[2017-04-18 09:48] LABS: ADD PATHOLOGY DIFF REVIEW NO
[2017-04-18 09:53] LABS: MEAN CELL VOLUME 97 fl (80.0-100.0); MEAN CORPUSCULAR HGB CONC 31 g/dl (33.0-37.0); RED BLOOD COUNT 2.66 M/mm3 (4.20-5.60); REDCELL DISTRIBUTION WIDTH-CV 24.4 % (11.5-14.5)
[2017-04-18 09:58] VITALS: BP 105/72; PULSE 81; TEMP 97.6
[2017-04-18 10:01] LABS: ADJUSTED CALCIUM 9.8 mg/dL (8.4-10.2); ALBUMIN 3.3 gm/dL (3.5-5.0); BILIRUBIN,TOTAL 1.6 mg/dL (0.0-1.0); CALCIUM 9.2 mg/dL (8.4-10.2); CREATININE, serum 0.93 mg/dL (0.66-1.25); POTASSIUM 4.1 mmol/L (3.4-5.0); TOTAL PROTEIN 5.7 gm/dL (6.4-8.2)
[2017-04-18 10:15] LABS: HEMATOCRIT 25.9 % (42.0-52.0); HEMOGLOBIN 8.1 g/dl (13.5-18.0); MEAN CORPUSCULAR HEMOGLOBIN 30 pg (27.0-31.0); WHITE BLOOD COUNT 1.7 K/mm3 (4.8-10.8)
[2017-04-18 10:16] LABS: PLATELET COUNT 17 K/mm3 (130-400)
[2017-04-18 12:23] LABS: BAND 35 % (0-10); EOSINOPHIL 1 % (0-4); NEUTROPHILS 41 % (42.0-75.2); TOTAL CELLS COUNTED 100
[2017-04-18 12:24] LABS: ANISOCYTOSIS 3+; HYPOCHROMIA 1+; POLYCHROMASIA 1+
[2017-04-22 09:50] VITALS: BP 98/64; PULSE 69; TEMP 97.6
[2017-04-22 10:06] LABS: MEAN CELL VOLUME 100 fl (80.0-100.0); MEAN CORPUSCULAR HGB CONC 31 g/dl (33.0-37.0); MEAN PLATELET VOLUME 11.7 fl (7.4-10.4); RED BLOOD COUNT 2.47 M/mm3 (4.20-5.60); REDCELL DISTRIBUTION WIDTH-CV 27.9 % (11.5-14.5)
[2017-04-22 10:11] LABS: HEMATOCRIT 24.6 % (42.0-52.0); HEMOGLOBIN 7.6 g/dl (13.5-18.0); MEAN CORPUSCULAR HEMOGLOBIN 31 pg (27.0-31.0); PLATELET COUNT 19 K/mm3 (130-400); WHITE BLOOD COUNT 1.5 K/mm3 (4.8-10.8)
[2017-04-22 10:15] LABS: ADJUSTED CALCIUM 9.9 mg/dL (8.4-10.2); ALBUMIN 3.2 gm/dL (3.5-5.0); CALCIUM 9.3 mg/dL (8.4-10.2); CREATININE, serum 0.92 mg/dL (0.66-1.25); POTASSIUM 4.1 mmol/L (3.4-5.0); TOTAL PROTEIN 5.6 gm/dL (6.4-8.2)
[2017-04-22 11:32] LABS: BAND 38 % (0-10); METAMYELOCYTE 10 % (0-0); MYELOCYTE 6 % (0-0); NEUTROPHILS 18 % (42.0-75.2); PLATELET ESTIMATE DECREASED (NORMAL); TOTAL CELLS COUNTED 100
[2017-04-22 11:43] LABS: ANISOCYTOSIS 2+
[2017-04-22 12:01] LABS: ADD PATHOLOGY DIFF REVIEW YES
[2017-04-22 14:23] LABS: PATHOLOGY DIFF REVIEW OK
[2017-04-25 10:25] LABS: ADJUSTED CALCIUM 9.9 mg/dL (8.4-10.2); BILIRUBIN,TOTAL 1.8 mg/dL (0.0-1.0); CALCIUM 9.1 mg/dL (8.4-10.2); CREATININE, serum 1.02 mg/dL (0.66-1.25); POTASSIUM 4.4 mmol/L (3.4-5.0); TOTAL PROTEIN 5.3 gm/dL (6.4-8.2)
[2017-04-25 11:16] VITALS: BP 107/67; PULSE 70; TEMP 98
[2017-04-25 12:15] LABS: ADD PATHOLOGY DIFF REVIEW NO
[2017-04-25 12:22] LABS: MEAN CELL VOLUME 104 fl (80.0-100.0); MEAN CORPUSCULAR HGB CONC 30 g/dl (33.0-37.0); RED BLOOD COUNT 2.43 M/mm3 (4.20-5.60); REDCELL DISTRIBUTION WIDTH-CV 30.2 % (11.5-14.5); WHITE BLOOD COUNT 2.4 K/mm3 (4.8-10.8)
[2017-04-25 12:27] LABS: HEMATOCRIT 25.2 % (42.0-52.0); HEMOGLOBIN 7.6 g/dl (13.5-18.0); MEAN CORPUSCULAR HEMOGLOBIN 31 pg (27.0-31.0)
[2017-04-25 12:29] LABS: PLATELET COUNT 18 K/mm3 (130-400)
[2017-04-25 13:48] LABS: BAND 30 % (0-10); METAMYELOCYTE 2 % (0-0); NEUTROPHILS 31 % (42.0-75.2); TOTAL CELLS COUNTED 100
[2017-04-25 13:52] LABS: PLATELET ESTIMATE DECREASED (NORMAL)
[2017-04-25 13:53] LABS: ANISOCYTOSIS 3+; HYPOCHROMIA 3+
[2017-04-25 13:54] LABS: POLYCHROMASIA 2+; TEAR DROP CELLS 1+
[2017-04-26 13:20] VITALS: BP 109/62; PULSE 82; TEMP 97.1
[2017-04-29 10:21] LABS: ADD PATHOLOGY DIFF REVIEW NO
[2017-04-29 10:26] LABS: MEAN CELL VOLUME 107 fl (80.0-100.0); MEAN CORPUSCULAR HGB CONC 30 g/dl (33.0-37.0); RED BLOOD COUNT 2.14 M/mm3 (4.20-5.60)
[2017-04-29 10:27] VITALS: BP 102/59; PULSE 85; TEMP 98.3
[2017-04-29 10:38] LABS: ADJUSTED CALCIUM 10.2 mg/dL (8.4-10.2); ALBUMIN 3.1 gm/dL (3.5-5.0); BILIRUBIN,TOTAL 2.3 mg/dL (0.0-1.0); CALCIUM 9.5 mg/dL (8.4-10.2); CREATININE, serum 0.93 mg/dL (0.66-1.25); POTASSIUM 4.3 mmol/L (3.4-5.0); TOTAL PROTEIN 5.6 gm/dL (6.4-8.2)
[2017-04-29 10:42] LABS: HEMATOCRIT 22.8 % (42.0-52.0); HEMOGLOBIN 6.8 g/dl (13.5-18.0); MEAN CORPUSCULAR HEMOGLOBIN 32 pg (27.0-31.0); PLATELET COUNT 12 K/mm3 (130-400)
[2017-04-29 11:56] LABS: BAND 63 % (0-10); BASOPHIL 1 % (0-2); METAMYELOCYTE 7 % (0-0); MYELOCYTE 2 % (0-0); NEUTROPHILS 12 % (42.0-75.2); TOTAL CELLS COUNTED 100
[2017-04-29 12:00] LABS: PLATELET ESTIMATE DECREASED (NORMAL)
[2017-04-29 12:01] LABS: ANISOCYTOSIS 1+; HYPOCHROMIA 1+; POLYCHROMASIA 2+
[2017-04-30] VITALS (13 sets, daily range): BP systolic 82–128; BP diastolic 49–81; PULSE 65–82; TEMP 98.3–98.6
[2017-05-02 09:43] LABS: ADD PATHOLOGY DIFF REVIEW NO
[2017-05-02 09:45] VITALS: BP 112/67; PULSE 73; TEMP 97.9
[2017-05-02 09:49] LABS: MEAN CORPUSCULAR HGB CONC 32 g/dl (33.0-37.0); MEAN PLATELET VOLUME 11.2 fl (7.4-10.4); RED BLOOD COUNT 2.82 M/mm3 (4.20-5.60); REDCELL DISTRIBUTION WIDTH-CV 26.5 % (11.5-14.5)
[2017-05-02 09:52] LABS: MEAN CORPUSCULAR HEMOGLOBIN 32 pg (27.0-31.0); WHITE BLOOD COUNT 1.8 K/mm3 (4.8-10.8)
[2017-05-02 09:53] LABS: MEAN CELL VOLUME 99 fl (80.0-100.0); PLATELET COUNT 27 K/mm3 (130-400)
[2017-05-02 09:57] LABS: ADJUSTED CALCIUM 9.9 mg/dL (8.4-10.2); ALBUMIN 3.1 gm/dL (3.5-5.0); BILIRUBIN,TOTAL 1.9 mg/dL (0.0-1.0); CALCIUM 9.2 mg/dL (8.4-10.2); CREATININE, serum 0.98 mg/dL (0.66-1.25); POTASSIUM 4.3 mmol/L (3.4-5.0); TOTAL PROTEIN 5.6 gm/dL (6.4-8.2)
[2017-05-02 10:37] LABS: BAND 20 % (0-10); METAMYELOCYTE 14 % (0-0); MYELOCYTE 8 % (0-0); NEUTROPHILS 41 % (42.0-75.2); TOTAL CELLS COUNTED 100
[2017-05-02 10:38] LABS: ANISOCYTOSIS 4+; HYPOCHROMIA 3+; OVALOCYTES 2+; PLATELET ESTIMATE DECREASED (NORMAL); TEAR DROP CELLS 1+
[2017-05-06 09:48] VITALS: BP 106/61; PULSE 82; TEMP 98.6
[2017-05-06 10:13] LABS: MEAN CELL VOLUME 102 fl (80.0-100.0); MEAN CORPUSCULAR HGB CONC 31 g/dl (33.0-37.0); MEAN PLATELET VOLUME 9.9 fl (7.4-10.4); RED BLOOD COUNT 2.62 M/mm3 (4.20-5.60); REDCELL DISTRIBUTION WIDTH-CV 25.1 % (11.5-14.5); WHITE BLOOD COUNT 3.4 K/mm3 (4.8-10.8)
[2017-05-06 10:17] LABS: ADJUSTED CALCIUM 9.2 mg/dL (8.4-10.2); ALBUMIN 2.4 gm/dL (3.5-5.0); BILIRUBIN,TOTAL 1.6 mg/dL (0.0-1.0); CALCIUM 7.9 mg/dL (8.4-10.2); CREATININE, serum 0.82 mg/dL (0.66-1.25); POTASSIUM 3.6 mmol/L (3.4-5.0); TOTAL PROTEIN 4.7 gm/dL (6.4-8.2)
[2017-05-06 10:23] LABS: HEMATOCRIT 26.6 % (42.0-52.0); HEMOGLOBIN 8.3 g/dl (13.5-18.0); MEAN CORPUSCULAR HEMOGLOBIN 32 pg (27.0-31.0)
[2017-05-06 10:34] LABS: PLATELET COUNT 11 K/mm3 (130-400)
[2017-05-06 11:20] LABS: ANISOCYTOSIS 2+; BAND 24 % (0-10); METAMYELOCYTE 2 % (0-0); MICROCYTOSIS 1+; MYELOCYTE 2 % (0-0); NEUTROPHILS 52 % (42.0-75.2); PLATELET ESTIMATE DECREASED (NORMAL); TOTAL CELLS COUNTED 100
[2017-05-06 11:21] LABS: ADD PATHOLOGY DIFF REVIEW YES
[2017-05-07 08:25] LABS: PATHOLOGY DIFF REVIEW OK
[2017-05-07 14:02] VITALS: BP 111/61; PULSE 96; TEMP 98.8
[2017-05-07 14:22] VITALS: BP 114/64; PULSE 95; TEMP 98.6
[2017-05-07 14:35] VITALS: BP 105/65; PULSE 93; TEMP 98.5
[2017-05-07 14:50] VITALS: BP 120/66; PULSE 87; TEMP 98.3
[2017-05-07 15:26] VITALS: BP 108/60; PULSE 84; TEMP 98.7
[2017-05-09 09:51] LABS: ADD PATHOLOGY DIFF REVIEW NO
[2017-05-09 09:57] LABS: MEAN CELL VOLUME 101 fl (80.0-100.0); MEAN CORPUSCULAR HGB CONC 32 g/dl (33.0-37.0); MEAN PLATELET VOLUME 11.1 fl (7.4-10.4); RED BLOOD COUNT 2.29 M/mm3 (4.20-5.60); REDCELL DISTRIBUTION WIDTH-CV 24.6 % (11.5-14.5); WHITE BLOOD COUNT 6.1 K/mm3 (4.8-10.8)
[2017-05-09 09:58] LABS: HEMATOCRIT 23.2 % (42.0-52.0); HEMOGLOBIN 7.3 g/dl (13.5-18.0); MEAN CORPUSCULAR HEMOGLOBIN 32 pg (27.0-31.0)
[2017-05-09 09:59] LABS: PLATELET COUNT 15 K/mm3 (130-400)
[2017-05-09 10:06] LABS: ADJUSTED CALCIUM 9.8 mg/dL (8.4-10.2); ALBUMIN 3.1 gm/dL (3.5-5.0); BILIRUBIN,TOTAL 1.5 mg/dL (0.0-1.0); CALCIUM 9.1 mg/dL (8.4-10.2); CREATININE, serum 0.89 mg/dL (0.66-1.25); POTASSIUM 3.7 mmol/L (3.4-5.0); TOTAL PROTEIN 5.6 gm/dL (6.4-8.2)
[2017-05-09 10:33] LABS: BAND 40 % (0-10); METAMYELOCYTE 4 % (0-0); MYELOCYTE 1 % (0-0); NEUTROPHILS 33 % (42.0-75.2); TOTAL CELLS COUNTED 100
[2017-05-09 10:34] LABS: PLATELET ESTIMATE DECREASED (NORMAL)
[2017-05-09 10:35] LABS: HYPOCHROMIA 2+; MICROCYTOSIS 1+; POLYCHROMASIA 1+
[2017-05-10] VITALS (12 sets, daily range): BP systolic 103–138; BP diastolic 61–82; PULSE 65–95; TEMP 97.7–99.5
[2017-05-13 09:58] VITALS: BP 116/67; PULSE 80; TEMP 98.6
[2017-05-13 10:44] LABS: ADJUSTED CALCIUM 10.3 mg/dL (8.4-10.2); BILIRUBIN,TOTAL 2.5 mg/dL (0.0-1.0); CALCIUM 9.5 mg/dL (8.4-10.2); CREATININE, serum 0.93 mg/dL (0.66-1.25); TOTAL PROTEIN 5.7 gm/dL (6.4-8.2)
[2017-05-13 12:59] LABS: ADD PATHOLOGY DIFF REVIEW NO
[2017-05-13 13:01] LABS: HEMATOCRIT 26.5 % (42.0-52.0); HEMOGLOBIN 8.4 g/dl (13.5-18.0); MEAN CELL VOLUME 97 fl (80.0-100.0); MEAN CORPUSCULAR HEMOGLOBIN 31 pg (27.0-31.0); MEAN CORPUSCULAR HGB CONC 32 g/dl (33.0-37.0); PLATELET COUNT 11 K/mm3 (130-400); RED BLOOD COUNT 2.72 M/mm3 (4.20-5.60); REDCELL DISTRIBUTION WIDTH-CV 22.9 % (11.5-14.5); WHITE BLOOD COUNT 4.9 K/mm3 (4.8-10.8)
[2017-05-13 14:52] LABS: ANISOCYTOSIS 4+; BAND 20 % (0-10); METAMYELOCYTE 1 % (0-0); MYELOCYTE 5 % (0-0); NEUTROPHILS 47 % (42.0-75.2); PLATELET ESTIMATE DECREASED (NORMAL); TOTAL CELLS COUNTED 100
[2017-05-13 14:53] LABS: HYPOCHROMIA 2+; OVALOCYTES 1+
[2017-05-15 14:04] VITALS: BP 109/64; PULSE 78; TEMP 98.4
[2017-05-15 14:18] VITALS: BP 109/69; PULSE 76; TEMP 98.6
[2017-05-15 14:37] VITALS: BP 119/65; PULSE 72; TEMP 98.4
[2017-05-16 09:46] VITALS: BP 109/61; PULSE 75; TEMP 98
[2017-05-16 09:46] LABS: MEAN CELL VOLUME 99 fl (80.0-100.0); MEAN CORPUSCULAR HGB CONC 31 g/dl (33.0-37.0); MEAN PLATELET VOLUME 11.2 fl (7.4-10.4); RED BLOOD COUNT 2.48 M/mm3 (4.20-5.60); REDCELL DISTRIBUTION WIDTH-CV 22.3 % (11.5-14.5)
[2017-05-16 09:51] LABS: ADJUSTED CALCIUM 10.2 mg/dL (8.4-10.2); BILIRUBIN,TOTAL 1.8 mg/dL (0.0-1.0); CALCIUM 9.4 mg/dL (8.4-10.2); CREATININE, serum 0.86 mg/dL (0.66-1.25); HEMATOCRIT 24.6 % (42.0-52.0); HEMOGLOBIN 7.5 g/dl (13.5-18.0); MEAN CORPUSCULAR HEMOGLOBIN 30 pg (27.0-31.0); POTASSIUM 4.1 mmol/L (3.4-5.0); TOTAL PROTEIN 5.8 gm/dL (6.4-8.2)
[2017-05-16 09:52] LABS: PLATELET COUNT 16 K/mm3 (130-400)
[2017-05-16 11:13] LABS: ANISOCYTOSIS 3+; BAND 64 % (0-10); METAMYELOCYTE 16 % (0-0); MYELOCYTE 7 % (0-0); NEUTROPHILS 9 % (42.0-75.2); PLATELET ESTIMATE DECREASED (NORMAL); TOTAL CELLS COUNTED 100; TOXIC GRANULATION PRESENT
[2017-05-16 11:14] LABS: ADD PATHOLOGY DIFF REVIEW YES
[~2017-05-17] VITALS: Ht 182.9 cm; Wt 86.4 kg
[2017-05-17] VITALS (9 sets, daily range): BP systolic 99–120; BP diastolic 57–74; PULSE 58–80; TEMP 98.2–98.8
[2017-05-17 09:10] LABS: PATHOLOGY DIFF REVIEW OK
[~2017-05-17 13:00] MED LIST changes: +DECADRON 4MG TAB4 MG PO; +PRILOSEC 20MG20 MG PO
== END 2017-05-22 | disposition still patient (30) ==
LOC: EUO
PROVIDERS: Internal Medicine
DX: D46.21 Refractory anemia with excess of blasts 1 (principal); Z94.81 Bone marrow transplant status
CPT/HCPCS: J7050; P9037; P9040